=== PATIENT | male | born 1970 | race Hispanic/Latino ===

== ENCOUNTER 2024-07-13 17:45 | Inpatient (IN) | payer BC ==
[~2024-07-13] VITALS: Ht 167.6 cm; Wt 143.3 kg
[2024-07-13 18:29] LABS: BASOPHILS 0.7 % (0-2); EOSINOPHILS 1.1 % (0-6); HEMATOCRIT 29.5 % (35.0-50.0); HEMOGLOBIN 10.1 g/dL (12.0-18.0); LYMPHOCYTES 18.9 % (24-44); MCH 32.2 (27-36); MCHC 34.4 g/dl (30-36); MCV 93.6 fl (81-99); MONOCYTES 13.5 % (0-12); NEUTROPHILS 65.8 % (39-80); PLATELET COUNT 244 K/uL (140-440); RBC 3.15 M/ul (4.3-5.7); RDW 15.2 (10.5-15.0)
[2024-07-13] MEDS ORDERED: SODIUM CHLORIDE 0.9% 1,000 ML IV PRN ×2 (18:30)
[2024-07-13 18:36] LABS: ALBUMIN 2.9 g/dL (3.4-5.0); ALBUMIN/GLOBULIN RATIO 0.71 (1.1-2.4); ANION GAP 17.9 (7-21); BILIRUBIN, TOTAL 0.7 ng/dL (0.2-1.0); BUN/CREATININE RATIO 8.26 (6.0-28.6); CALCIUM 8.6 mg/dL (8.5-10.1); CREATININE, SERUM 2.42 mg/dL (0.70-1.30); POTASSIUM 3.9 mmol/L (3.5-5.1)
[2024-07-13] MEDS ORDERED: CEFEPIME HCL/D5W 2 GM/100 ML PIGGYBACK IV ONE (18:45)
--- OUTSIDE RECORDS SUMMARY | 2024-07-13 19:26 | XMS ---
PreManage Notification: ALYSON TOMLINSON Security Manager Company Events No recent Security Events currently on file CRITERIA MET - 6 ED Visits in 6 Months - [facility] - 2 Visits in 30 Days - [facility] - 3 Facilities in 90 Days CARE PROVIDERS Narayan Ramirez DO [facility] Current PHONE: Unknown JAMES DE LEÓN [facility] Current PHONE: Unknown KRISSY LORD [facility] Current PHONE: Unknown Bakari has no Care Guidelines for this patient. E.D. VISIT COUNT (12 MO.) [address] [place] [address] [facility] NOTE: Visits indicate total known visits. ED/UCC VISIT TRACKING (12 MO.) 07/13/2024 17:45 [facility] TYPE: Emergency COMPLAINT: - RECTAL ISSUE 07/11/2024 18:31 [facility] TYPE: Emergency DIAGNOSES: - Morbid (severe) obesity due to excess calories - Other specified diseases of anus and rectum - Perianal venous thrombosis - Unspecified atrial fibrillation - Fatigue - Headache (Adult - New Onset Or New Symptoms) - Nausea - Rectal Pain - rectal pain weakness nausea 07/11/2024 01:41 [facility] TYPE: Emergency DIAGNOSES: - Unspecified hemorrhoids - CYST 07/08/2024 10:04 [facility] TYPE: Emergency COMPLAINT: - VOMITING BLOOD DIAGNOSES: - VOMITING BLOOD 06/20/2024 13:41 [facility] TYPE: Emergency DIAGNOSES: - Effusion, left elbow - SENT BY DOC 04/29/2024 19:42 [facility] TYPE: Emergency DIAGNOSES: - Encounter for change or removal of nonsurgical wound dressing - Encounter for other specified aftercare - WOUND CHECK 04/28/2024 19:18 [facility] [place] TYPE: Emergency DIAGNOSES: - Cellulitis of right lower limb - Cutaneous abscess of right lower limb - Foot Pain 04/22/2024 10:15 [facility] [place] TYPE: Emergency DIAGNOSES: - Cellulitis of right lower limb - Other injury of unspecified body region, initial encounter - leg pain 11/05/2023 10:01 [facility] TYPE: Emergency DIAGNOSES: - Cellulitis of left upper limb - Strain of muscle, fascia and tendon of abdomen, initial encounter - Unspecified internal derangement of left knee - LEFT HAND SWELLING LEFT KNEE PAIN AND RIGHT GROIN AREA PAIN INPATIENT VISIT TRACKING (12 MO.) 07/08/2024 10:04 [facility] TYPE: Medical Surgical DIAGNOSES: - Contusion of left upper arm, initial encounter - Gastrointestinal hemorrhage, unspecified - Unspecified atrial fibrillation - VOMITING BLOOD [email or web address]
[2024-07-13] MEDS ORDERED: LIDOCAINE HCL100 ML MT (19:37)
[2024-07-13] MEDS ORDERED: METOCLOPRAMIDE10 MG PO (19:37)
[2024-07-13] MEDS ORDERED: DILTIAZEM 24HR180 M1 PO (19:37)
[2024-07-13] MEDS ORDERED: ONDANSETRON ODT4 MG PO (19:37)
[2024-07-13] MEDS ORDERED: PANTOPRAZOLE SO40 MG PO (19:37)
[2024-07-13] MEDS ORDERED: DICLOFENAC SODI50 GM TP (19:37)
[2024-07-13] MEDS ORDERED: TORSEMIDE10 MG PO (19:37)
[2024-07-13] MEDS ORDERED: XARELTO20 MG PO (19:38)
[2024-07-13] MEDS ORDERED: OZEMPIC0.25 MG/02 SQ (19:39)
[2024-07-13] MEDS ORDERED: FREESTYLE LITE1 EAC1 MISC (19:39)
[2024-07-13] MEDS ORDERED: VAZALORE81 MG PO (19:39)
[2024-07-13] MEDS ORDERED: FREESTYLE LANC1 EACH MISC (19:39)
[2024-07-13] MEDS ORDERED: LISINOPRIL40 MG PO (19:39)
[2024-07-13] MEDS ORDERED: LIDOCAINE 2% VISCOUS 6 ML SYR TOP ONE (20:00)
[2024-07-13 20:28] LABS: BILIRUBIN, URINE NEGATIVE (negative); BLOOD/HGB, URINE NEGATIVE (Negative); KETONE, URINE TRACE (Negative); LEUK ESTERASE, URINE NEGATIVE (negative); NITRITE, URINE NEGATIVE (negative); PH, URINE 5.5 (5-7)
[2024-07-13] MEDS ORDERED: PANTOPRAZOLE SODIUM 40 MG/10 ML VIAL IV SCH (20:43)
[2024-07-13] MEDS ORDERED: ondansetron HCL 4 MG/2 ML VIAL IV PRN (20:45)
[2024-07-13] MEDS ORDERED: ACETAMINOPHEN 325 MG TAB PO PRN (20:45)
[2024-07-13] MEDS ORDERED: DAPTOmycin 500 MG/10 ML VIAL IV SCH (21:00)
[2024-07-13 21:35] VITALS: BP 94/81
[2024-07-13] MEDS ORDERED: LACTATED RINGER'S 1,000 ML IV ONE (21:45)
[2024-07-13 22:00] VITALS: BP 91/77
[2024-07-13] MEDS ORDERED: DEXTROSE 5% 1,000 ML IV PRN (22:00)
[2024-07-13] MEDS ORDERED: GLUCAGON,HUMAN RECOMBINANT 1 MG/ML VIAL SUB-Q PRN (22:00)
[2024-07-13] MEDS ORDERED: DEXTROSE 50% 50 ML SYR IV PRN ×2 (22:00)
[2024-07-13] MEDS ORDERED: IBLOOD GLUCOSE TEST STRIP 1 EA TEST XX PRN (22:00)
[2024-07-13 22:30] VITALS: BP 119/81
[2024-07-13] MEDS ORDERED: HYDROmorphone HCL 2 MG TAB PO PRN (22:30)
[2024-07-13] MEDS ORDERED: PHE/SHARK LIVER OIL/COCOA BUT 1 EA SUPP PR PRN (22:30)
[2024-07-13 23:00] VITALS: BP 129/101
[2024-07-13 23:30] VITALS: BP 131/74
--- NOTE | 2024-07-13 23:49 | NUR ---
PATIENT ARRIVED TO UNIT AT 2115 AFTER REPORT RECEIVED FROM LONG STARKS. TRANSPORTED VIA GURNEY TO ROOM 129. PATIENT ASSISTED TO SCOOT OVER TO BED. RENEWABLE ENERGY ENGINEER MAGGI ([id number]) USED FOR ADMISSION AND ASSESSMENT. PATIENT ORIENTED TO ROOM,NURSING STAFF, CALL LIGHT FUNCTIONS AND SAFETY EDUCATION PROVIDED. PATIENT VERBALIZED UNDERSTANDING. ASSESSMENT CHARTED. PATIENTS FAMILY HAD MARKED AREA OF REDNESS ON HIS [employer] SALES CONSULTANT. PT'S REPORTS THE AREA APPEARS IMPROVED BUT IT IS RED AND WARM TO TOUCH. 23:[address] MICHAELS FOR CPAP/RT EVAL AND TREAT. RT TO ROOM WITH CPAP. RENEWABLE ENERGY ENGINEER MIREYA ([id number]) USED FOR THIS RN'S INCENTIVE SPIROMETER EDUCATION AND RT INTERVENTIONS. PATIENT REFUSED CPAP DUE TO DISLIKE OF MASK. ENCOURAGED FAMILY TO BRING IN HOME CPAP. PATIENT PLACED ON 1L NC FOR O2 SAT 87-88%. PATIENT'S AND SON REMAIN AT BEDSIDE. COMFORT ITEMS PROVIDED FOR FAMILY. CALL LIGHT IN REACH.
[2024-07-14] VITALS (31 sets, daily range): BP systolic 74–147; BP diastolic 55–110
--- NOTE | 2024-07-14 00:46 | NUR ---
PATIENT WAKES EASILY TO RN IN ROOM. REPORTS PAIN HAS IMPROVED. DENIES NEEDS AT THIS TIME. REMAINS AFIB ON TELEMETRY. FAMILY AT BEDSIDE. CALL LIGHT IN REACH.
--- NOTE | 2024-07-14 01:03 | NUR ---
PATIENT REPORTS PAIN HAS IMPROVED AFTER MEDICATION BUT STILL C/O HEMORRHOID PAIN. PREPARATION H MEDICATION NOT AVAILABLE AT THIS TIME. ASSISTED WITH REPOSITIONING AND PILLOW SUPPORT UNDER BUTTOCK.
--- NOTE | 2024-07-14 01:44 | NUR ---
PATIENT NOTED TO DESAT TO 80%, PATIENT AGREES TO WEAR CPAP. RT IN ROOM TO PLACE CPAP WITH 8L O2 BLEED IN. O2 SAT IMPROVED TO 93-95%.
--- NOTE | 2024-07-14 01:57 | NUR ---
DR. MICHAELS UPDATED ON CPAP AND O2 DEMAND WELL TEMP. ORDER RECEIVED FOR AM CHEST XRY.
--- NOTE | 2024-07-14 02:22 | NUR ---
PATIENT RESTING IN BED WITH EYES CLOSED. APPEARS TO BE TOLERATING CPAP MASK. O2 SAT WITH CPAP/8L O2 BLEED IN 97%. REMAINS AFIB ON TELEMETRY WITH HR RANGING FROM 109 TO 120S. PTS REPORTED THAT ON RECENT ADMISSION, PATIENT WAS GIVEN IV MEDICATION FOR RATE CONTROL. RECORDS REQUESTED FROM DEQUAN MOORE AWAITING FAX OF RECORDS AT THIS TIME.
--- NOTE | 2024-07-14 02:53 | NUR ---
REASSESSMENT CHARTED. PATIENT REMAINS ON CPAP WITH 8L O2 SUPPLEMENT. BP TREND REVIEWED WITH DR. MICHAELS. ORDER RECEIVED FOR 1L LR BOLUS.
[2024-07-14] MEDS ORDERED: LACTATED RINGER'S 1,000 ML IV ONE ×2 (03:00→10:45)
--- NOTE | 2024-07-14 03:20 | NUR ---
IVF INFUSING PER ORDER. TYLENOL GIVEN PER EMAR. FAMILY REMAINS AT BEDSIDE. PATIENT CONTINUES TO TOLERATE CPAP MASK WITHOUT COMPLAINT.
--- NOTE | 2024-07-14 04:36 | NUR ---
PATIENT REMAINS AFIB ON TELEMETRY. RATE NOTED TO INCREASE FROM 120S TO 130S AND AT TIMES 140S. DR. MICHAELS NOTIFIED OF CURRENT VS AND HR. ORDER RECEIVED FOR ESMOLOL GTT.
[2024-07-14] MEDS ORDERED: ESMOLOL HCL 250 ML IV SCH (04:45)
--- NOTE | 2024-07-14 05:05 | NUR ---
ESMOLOL GTT STARTED. HR DECREASED TO 112-120. BP 87/64 (73). UNIT AIDE TECH IN ROOM TO DRAW AM LABS.
[2024-07-14 05:29] LABS: BASOPHILS 0.7 % (0-2); EOSINOPHILS 1.5 % (0-6); HEMATOCRIT 23.8 % (35.0-50.0); HEMOGLOBIN 8.1 g/dL (12.0-18.0); LYMPHOCYTES 16.1 % (24-44); MCH 31.8 (27-36); MCHC 33.9 g/dl (30-36); MCV 93.7 fl (81-99); NEUTROPHILS 66.7 % (39-80); PLATELET COUNT 202 K/uL (140-440); RBC 2.53 M/ul (4.3-5.7); RDW 15.2 (10.5-15.0)
--- NOTE | 2024-07-14 05:31 | NUR ---
ESMOLOL GTT STOPPED D/T DECREASED IN BP AND MAP. DR. MICHAELS NOTIFIED OF BP. SOME IMPROVEMENT IN HR NOTED, CURRENTLY SUSTAINING HIGH 1 TEENS TO 120S. ORDER RECEIVED TO GIVE 1L NS BOLUS. PRECISION LATHE OPERATOR IN ROOM ATTEMPTING SECOND IV.
[2024-07-14] MEDS ORDERED: SODIUM CHLORIDE 0.9% 1,000 ML IV ONE ×2 (05:45)
[2024-07-14 05:55] LABS: ALBUMIN 2.2 g/dL (3.4-5.0); ALBUMIN/GLOBULIN RATIO 0.69 (1.1-2.4); ANION GAP 17.7 (7-21); BILIRUBIN, TOTAL 0.5 ng/dL (0.2-1.0); BUN/CREATININE RATIO 8.98 (6.0-28.6); CALCIUM 7.6 mg/dL (8.5-10.1); CREATININE, SERUM 1.67 mg/dL (0.70-1.30); MAGNESIUM 1.7 mg/dL (1.8-2.4); POTASSIUM 3.7 mmol/L (3.5-5.1); PROTEIN, TOTAL 5.4 g/dL (6.4-8.2)
--- NOTE | 2024-07-14 06:23 | NUR ---
PATIENT REPOSITIONED AND LIFT SHEET PLACED. CHUX CHANGED FOR SMALL AMOUNT OF SEROSANGUINOUS DRAINAGE FROM HEMORRHOIDS. XRY IN ROOM FOR PCXR. NS IV BOLUS STARTED. COOL CLOTH PROVIDED AND SPOUSE AT BEDSIDE ASSISTING WITH COMFORT CARES. PATIENT AWAKE AND CPAP REMOVED. CONTINUES TO WORK ON INCENTIVE SPIROMETER AND ACHIEVE 2000ML. ORAL TEMP 98.6. PILLOW SUPPORT PROVIDED TO RELIEVE PRESSURE OFF BUTTOCK. CALL LIGHT IN REACH.
--- NOTE | 2024-07-14 06:50 | NUR ---
PATIENT RESTING IN BED WITH EYES CLOSED. RR 17, O2 SAT 87-88% ROOM AIR. O2 2LNC PLACED WITH IMPROVEMENT TO 97%.
--- NOTE | 2024-07-14 07:11 | NUR ---
NS BOLUS COMPLETE. PATIENT AWAKE AND INTERACTING WITH SON. O2 TITRATED TO OFF WITH SATS AT 95-96%.
[2024-07-14] MEDS ORDERED: CEFEPIME HCL/D5W 2 GM/100 ML PIGGYBACK IV SCH ×2 (07:13→09:00)
[2024-07-14] MEDS ORDERED: MAGNESIUM SULFATE 2 GM/50 ML BAG IV SCH (07:30)
[2024-07-14] MEDS ORDERED: IBLOOD GLUCOSE TEST STRIP 1 EA TEST XX SCH (08:00)
[2024-07-14] MEDS ORDERED: INSULIN LISPRO 100 UNIT/ML ML SUB-Q SCH (08:00)
--- NOTE | 2024-07-14 09:09 | NUR ---
AM ASSESSMENT COMPLETE. PATIENT BOOSTED IN BED USING CEILING LIFT AND LIFT SHEET TO SIT UP FOR BREAKFAST. PT ONLY ATE ABOUT 30% OF HIS BREAKFAST. PT'S S/O MAHENDRA AND HIS BROTHER IN LAW PRESENT AT THIS TIME. HIS SON MIKI HAS LEFT FOR NOW. IV MAG NOW INFUSING. 2ND IV SITE TO BE ESTABLISHED. NO MOTTLING NOTED THIS AM. PT HAS HAD ECHO AND U/S LOWER RIGHT LEG COMPLETE. HEART RATE REMAINS IN THE 110-140s, DEPENDING ON ACTIVITY. PT STATES HIS PAIN IS IN HIS HEAD, AND STATES HE DOESN'T CURRENTLY HAVE A HEADACHE BUT DID HAVE ONE EARLIER.
--- NOTE | 2024-07-14 10:28 | NUR ---
DR. MICHAELS IN ROOM TO SEE PATIENT AT THIS TIME. HEMORRHOIDS EVALUATED AND PRN MEDICATION GIVEN. PT C/O HEADACHE AGAIN AND DISCUSSED WITH PATIENT AND FAMILY POTENTIAL FOR LP BUT NOT TO BE ORDERED AT THIS TIME. DEQUAN MOORE CALLED TO SEE IF ECHO RESULTS WERE AVAILABLE BUT PER THEIR ASSISTANT DIRECTOR OF FINANCIAL AID, THE REPORT IS NOT READ BY MANAGEMENT PROFESSIONAL. PT REMAINS ON AFIB, 110-130s HEART RATE. PT NOW RESTING ON RIGHT SIDE ADN POSITIONED WITH PILLOWS. PRN TRAMADOL TO BE ORDERED.
[2024-07-14] MEDS ORDERED: TRAMADOL HCL 50 MG TAB PO PRN (10:45)
[2024-07-14] MEDS ORDERED: METOPROLOL TARTRATE 25 MG TAB PO SCH (10:45)
--- NOTE | 2024-07-14 11:24 | NUR ---
PATIENT RESTING AT THIS TIME WITH HOME CPAP ON, OXYGEN AT 1 L BLED IN. PT STILL DESATURATING WITH THIS, AND 02 TURNED UP TO 2L. PT'S S/O IS RESTING ON COUCH AND PT'S SISTER IS SITTING AT BEDSIDE HOLDING PATIENT'S HAND. IV BOLUS INFUSING. IV MAG COMPLETE. IV CEFEPIME INFUSING STILL.
[2024-07-14] MEDS ORDERED: PHARMACY RENAL DOSE ADJUSTMENT 1 DOSE MISC PO SCH (12:00)
--- NOTE | 2024-07-14 12:24 | NUR ---
PATIENT RESTING AT THIS TIME WITH HOME CPAP ON AND DOES NOT WANT TO EAT ANY LUNCH. MOTTLING REMAINS GONE, SKIN IS WARM AND DRY. LAST BP 125/75. PO METOPROLOL STARTED FOR HEART RATE CONTROL. 1 L LR BOLUS HAS FINISHED AND PT TOLERATED WELL. URINE OUTPUT IN CUBA REMAINS CLEAR YELLOW AND GOOD AMOUNT NOTED IN BAG. FAMILY REMAINS AT BEDSIDE AND VERY ATTENTIVE TO PATIENT. 2 L OXYGEN REMAINS BLED INTO CPAP. WILL CONTINUE TO MONITOR.
--- NOTE | 2024-07-14 14:12 | NUR ---
Checked in with patient and family at 14:05, as Asphalt Heater Tenderyumi Roberson had met with family the night before in the ER. Gave words of comfort and let know of availability.
[2024-07-14] MEDS ORDERED: ZINC OXIDE TOP SCH (15:11)
--- NOTE | 2024-07-14 15:58 | EKG ---
[facility] [address] [facility] [place] [address] Signed Atrial fibrillation Low voltage QRS Abnormal ECG No previous ECGs available Confirmed by Yanick Milian MD ([id number]) on 07/14/2024 3:57:40 PM Electronically Signed By: YANICK MILIAN MD 07/14/24 1558 PATIENT NAME: ALYSON TOMLINSON Electrocardiogram DATE OF : 66 PHYSICIAN: YANICK MILIAN MD REPORT #: [id number] REPORT IS CONFIDENTIAL AND NOT TO BE RELEASED WITHOUT AUTHORIZATION
--- NOTE | 2024-07-14 17:44 | NUR ---
PATIENT GIVEN BED BATH AND NEW GOWN GIVEN. PT THEN UP TO CHAIR TO CHANGE LINEN. PT WAS A 2 PERSON ASSIST BUT STEADY ON FEET ONCE UP, EXCEPT FOR HIS CHRONIC PAIN IN LEFT LEG/KNEE. PT'S HELPING WITH BATH WELL. PT UNCOMFORTABLE IN CHAIR BECAUSE OF HIS HEMORRHOIDS. HELPED BACK TO BED AND NOW RESTING. PT NOT WANTING ANY DINNER. CBG 96 AND NO INSULIN NEEDED. HR REMAINS IN 120-130s AND MOST RECENT BLOOD PRESSURE IS 107/67. PT ON ROOM AIR AT THIS TIME.
--- NOTE | 2024-07-14 19:58 | NUR ---
SHIFT REPORT RECEIVED FROM LONG HOOD. PATIENT RESTING IN BED WITH EYES CLOSED, CPAP ON WITH 2L O2. O2 SAT 96-97%. RESPIRATIONS EVEN AND UNLABORED. PATIENT'S SPOUSE AT BEDSIDE. REVIEWED POC WITH SPOUSE FOR THE EVENING. DENIES QUESTIONS OR CONCERNS. CALL LIGHT IN REACH.
--- NOTE | 2024-07-14 20:52 | NUR ---
ASSESSMENT CHARTED. PATIENT C/O HEADACHE. PRN TRAMADOL GIVEN PER EMAR. CBG WNL, NO HS SS INSULIN NEEDED. PATIENT'S REMAINS AT BEDSIDE AND KINDLY INVOLVED IN CARES. ECONOMIC HISTORIAN IN ROOM TO COMPLETE CUBA CARE.
--- NOTE | 2024-07-14 20:57 | NUR ---
THREAT MONITORING ANALYST DID CATH CARE ON PT.
[2024-07-14] MEDS ORDERED: DAPTOmycin 500 MG/10 ML VIAL IV SCH (21:00)
--- NOTE | 2024-07-14 21:48 | NUR ---
PATIENT WISHES TO USE CHROME PLATER HELPER. TELE CHROME PLATER HELPER [place], [place] [id number] USED TO EXPLAIN POLICY AND REVIEW CHROME PLATER HELPER SERVICES DOCUMENTATION FORM. EXPLAINED TO PATIENT AND THAT THERE ARE TIMES THAT WE WILL STILL USE TELE CHROME PLATER HELPER AND AT ANY POINT HE CAN REQUEST TELE CHROME PLATER HELPER. BOTH VERBALIZE UNDERSTANDING. PATIENT REPOSITIONED IN BED WITH LIFT SHEET AND LIFT. ASSISTED WITH PILLOW SUPPORT. PATIENT REPORTS SOME INPROVEMENT IN HEADACHE AFTER TRAMADOL. DENIES OTHER NEEDS OR CONCERNS AT THIS TIME. CALL LIGHT IN REACH.
[2024-07-14] MEDS ORDERED: SODIUM CHLORIDE 0.9% 1,000 ML IV SCH (22:15)
--- NOTE | 2024-07-14 22:38 | NUR ---
DR. BRADLEY ROUNDED ON UNIT. UPDATED ON PATIENT. HR REMAINS 120S TO 130S, AFIB. ORDER RECEIVED FOR IVF, NS AT 125ML/HR. IVF HUNG AND INFUSING. PATIENT'S MAHENDRA REMAINS AT BEDSIDE. PATIENT DENIES NEEDS OR CONCERNS AT THIS TIME. HE IS RESTING IN BED WITH HOME CPAP ON WITH 2L O2. CALL LIGHT IN REACH.
[2024-07-14] MEDS ORDERED: DILTIAZEM HCl/D5W 125 ML IV SCH (23:15)
--- NOTE | 2024-07-14 23:15 | NUR ---
DR. BRADLEY NOTIFIED OF HR IN THE HIGHER 130S TO 140S. ORDER RECEIVED FOR DILTIAZEM GTT FOR SUSTAINED HR 130S TO 140S.
[2024-07-15] VITALS (30 sets, daily range): BP systolic 94–144; BP diastolic 52–111
--- NOTE | 2024-07-15 00:05 | NUR ---
PATIENT CONTINUED TO SUSTAIN HR 130S TO 140S WITH THE OCCASSIONAL LOW 150S. DILTIAZEM GTT INITIATED PER ORDER. EDUCATION PROVIDED TO PATIENT AND SPOUSE. ASSESSMENT CHARTED. PATIENT REQUESTS TYLENOL FOR FEVER AND HEADACHE; GIVEN PER EMAR. DENIES OTHER NEEDS OR CONCERNS. CALL LIGHT IN REACH.
--- NOTE | 2024-07-15 00:48 | NUR ---
DILTIAZEM STARTED AT 2.5MG/HR PER ORDER AND TITRATED. CURRENTLY AT 10MG/HR WITH HR MOSTLY SUSTAINING IN 140S, OCCASIONAL INCREASE TO 150S. BP ON Q15MIN CYCLES.
--- NOTE | 2024-07-15 01:21 | NUR ---
PATIENT C/O FEELING HOT AND SWEATY. ORAL TEMP 99.2. CBG 104. COOL CLOTH, FAN AND ICE BAGS PROVIDED FOR COMFORT. PATIENT DENIES CHEST PAIN OR SOB. DILTIAZEM TITRATTION AT 15MG/HR. BP TOLERATING RATE AT THIS TIME.
--- NOTE | 2024-07-15 02:22 | NUR ---
PATIENT RESTING WITH EYES CLOSED. RESPIRATIONS EVEN AND UNLABORED. REMAINS IN AFIB WITH RATE 117-130, MOSTLY HIGH 1 TEENS TO 120S AT THIS TIME. DILTIAZEM GTT REMAINS AT 15MG/HR WITH MOST RECENT BP 94/66 (76).
--- NOTE | 2024-07-15 04:03 | NUR ---
PATIENT RESTING WITH EYES CLOSED. REMAINS ON CPAP WHEN RESTING. HR IMPROVING WITH RATE RANGING FROM HIGH 90S TO HIGH 1TEENS. DILTIAZEM GTT CONTINUES AT 15MG/HR WITH MOST RECENT BP 100/72 (82). RESTING AT BEDSIDE. CALL LIGHT IN REACH.
--- NOTE | 2024-07-15 05:10 | NUR ---
PATIENT WOKE EASILY FOR ASSESSMENT. DENIES PAIN AT THIS TIME. IVF AND DILTIAZEM INFUSING WITHOUT DIFFICULTY. MINERAL SURVEYING TECHNICIAN IN TO DRAW AM LABS. AT BEDSIDE. CALL LIGHT IN REACH.
[2024-07-15 05:22] LABS: BASOPHILS 0.6 % (0-2); EOSINOPHILS 2.5 % (0-6); HEMATOCRIT 25.1 % (35.0-50.0); HEMOGLOBIN 8.5 g/dL (12.0-18.0); LYMPHOCYTES 18.3 % (24-44); MCH 31.8 (27-36); MCV 93.5 fl (81-99); MONOCYTES 15.3 % (0-12); NEUTROPHILS 63.3 % (39-80); PLATELET COUNT 207 K/uL (140-440); RBC 2.68 M/ul (4.3-5.7); RDW 15.1 (10.5-15.0)
[2024-07-15 05:37] LABS: ALBUMIN/GLOBULIN RATIO 0.59 (1.1-2.4); ANION GAP 15.6 (7-21); BILIRUBIN, TOTAL 0.4 ng/dL (0.2-1.0); BUN/CREATININE RATIO 6.72 (6.0-28.6); CALCIUM 7.8 mg/dL (8.5-10.1); CREATININE, SERUM 1.19 mg/dL (0.70-1.30); MAGNESIUM 1.8 mg/dL (1.8-2.4); POTASSIUM 3.6 mmol/L (3.5-5.1); PROTEIN, TOTAL 5.4 g/dL (6.4-8.2)
[2024-07-15] MEDS ORDERED: SENNOSIDES/DOCUSATE 1 EA TAB PO SCH (09:00)
--- NOTE | 2024-07-15 09:04 | NUR ---
IN PATIENT'S ROOM FOR AM ASSESSMENT, BREAKFAST AND VITALS. CBG 96 AND NO INSULIN NEEDED. PT RESTING IN BED ON ROOM AIR AND APPEARS IN NO ACUTE DISTRESS. PT ON DILT GTT AT 15 MG/HR AND HR BETTER CONTROLLED, CURRENTLY 110s. BPs ARE TOLERATING DILT GTT. URINE REMAINS YELLOW AND GOOD AMOUNTS NOTED IN CUBA BAG. PT WANTING TO HAVE CUBA D/C AND MD OKAY WITH THIS. STOOL SOFTENERS TO BE STARTED THIS AM. NS CONTINUES AT 125 ML/HR. PHYS THERAPY TO SEE PATIENT TODAY.
--- NOTE | 2024-07-15 10:08 | NUR ---
PATIENT UP WITH PHYS THERAPY TO CHAIR. PT PREFERS TO USE CRUTCHES, WHICH IS WHAT HE USES AT HOME. PT ABLE TO TAKE A FEW STEPS AND INTO THE CHAIR. DILT GTT REMAISN AT 15 MG/HR. PT C/O FEELING NAUSEOUS AND PRN ZOFRAN GIVEN. PT ALSO HAS A 9/10 HEADACHE, PAIN IN HIS RECTUM FROM HEMORRHOIDS, AND PAIN IN HIS LEFT KNEE WHICH IS CHRONIC. WILL CONTINUE TO MONITOR.
--- NOTE | 2024-07-15 10:29 | NUR ---
DR. BRADLEY IN TO SEE PATIENT AND PLAN OF CARE BEING DISCUSSED. PT DISCUSSING HIS HEMORRHOIDS, AND HOW THEY SUDDENLY APPEARED LAST TUESDAY MORNING. PT REPORTS LAST TUESDAY, A WEEK AGO, WHEN HE WAS AT [facility] FOR HIS GI BLEEDING, THEY DID A RECTAL EXAM AND HE FELT IF SOMETHING "TORE" WHEN THAT HAPPENED. PT STATES TUESDAY MORNING WHEN HE AWOKE, THE HEMORRHOIDS HAD APPEARED. PT'S TELLS US THAT PATIENT HAS AN APPOINTMENT WITH A PHYSICIAN ON JULY 25 FOR HIS HEMORRHOIDS, AND A CARDIOLOGY APPOINTMENT ON AUGUST 06 IN [facility].
--- NOTE | 2024-07-15 12:01 | NUR ---
PATIENT HELPED BACK TO BED WITH THIS RN AND HIS SON. ONCE PATIENT IS STANDING, HE IS STEADY ON HIS FEET BUT DOES FAVOR THE LEFT KNEE MAKING IT HARD TO WALK. PT'S SON AND DAUGHTER ARE THE ONLY ONES IN ROOM AT THIS TIME AND ATTENDING TO HIM. PT WANTING TO REST AND HAS CONTINUED TO HAVE NAUSEA. WILL CONTINUE TO MONITOR.
[2024-07-15] MEDS ORDERED: dilTIAZem HCL 180 MG CAPCR PO SCH (12:51)
--- NOTE | 2024-07-15 13:18 | NUR ---
DR. BRDALEY BACK IN ROOM TO SEE PATIENT AND ASSESS HEMORRHOIDS. PREP-H PRN MEDICATION APPLIED. HEMORRHOIDS REMAIN LARGE, PROTRUDED, BUT NOT DARK AND ABOUT THE SAME COLOR THE SURROUNDING SKIN. DR. BRADLEY DISCUSSING CASE WITH DR. HAYWOOD REGARDING TREATMENT OF THESE. Enrique PA HAS A SCHEDULED APPOINTMENT WITH DR. AVALOS IN [place] TO HAVE THESE ASSESSED, AND A SCHEDULED COLONOSCOPY SCHEDULED 08/06 AT [facility]. HOME DOSE OF DILT TO BE STARTED.
[2024-07-15] MEDS ORDERED: DICLOFENAC 1% TOPICAL GEL TOP PRN (13:30)
[2024-07-15] MEDS ORDERED: PROCHLORPERAZINE EDISYLATE 10 MG/2 ML VIAL IV PRN (13:30)
--- NOTE | 2024-07-15 14:23 | NUR ---
medications reconciled
--- NOTE | 2024-07-15 17:30 | NUR ---
PATIENT UP TO BATHROOM WITH CRUTCHES AND THIS RN AND HIS TO ASSIST EALIER. PT THOUGHT HE NEEDED TO HAVE A BM BUT WAS UNABLE. PT DID VOID AN UNMEASURED AMOUNT. PT THEN BACK TO BED AND CLEAN UNDERWEAR PLACED WITH JANELLE PAD TO CATCH THE SMALL AMOUNT OF BLOOD DRAINAGE THAT IS COMING FROM HEMORRHOID AREA. PATIENT NOT WANTING TO EAT ANY DINNER STILL. PT DID HAVE SMALL AMOUNT OF EMESIS EARLIER TODAY, ABOUT 100 ML YELLOW BILE LIKE FLUID. PRN COMPAZINE WAS GIVEN. PT'S FAMILY REMAINS IN ROOM.
--- NOTE | 2024-07-15 19:45 | NUR ---
REPORT RECEIVED FROM ERWIN ALVES. PT RESTING IN BED WITH EYES CLOSED, HR 90'S-100'S. AT BEDSIDE.
--- NOTE | 2024-07-15 22:45 | NUR ---
PT UP TO BEDSIDE TO VOID 500 ML ASHWIN URINE, BACK TO BED.
[2024-07-16] VITALS (10 sets, daily range): BP systolic 97–128; BP diastolic 64–89
--- NOTE | 2024-07-16 00:30 | NUR ---
PT HAS BEEN RESTING WITH CPAP ON, HR REMAINS 90'S, AT BEDSIDE.
--- NOTE | 2024-07-16 04:30 | NUR ---
PT UP TO BATHROOM TO HAVE BOWEL MOVEMENT, DID HAVE SMALL BOWEL MOVEMENT, STATES IT WAS NOT PAINFUL. ALSO HAD UNCAUGHT URINE. HR UP TO 140'S WHEN UP, BACK DOWN ONCE HE IS BACK IN BED.
--- NOTE | 2024-07-16 04:45 | NUR ---
ULTRAM GIVEN FOR HEMORRHOID PAIN.
[2024-07-16 05:28] LABS: BASOPHILS 0.6 % (0-2); EOSINOPHILS 2.9 % (0-6); HEMATOCRIT 23.8 % (35.0-50.0); HEMOGLOBIN 8.1 g/dL (12.0-18.0); LYMPHOCYTES 16.7 % (24-44); MCH 31.4 (27-36); MCHC 33.9 g/dl (30-36); MCV 92.8 fl (81-99); MONOCYTES 16.1 % (0-12); NEUTROPHILS 63.7 % (39-80); PLATELET COUNT 231 K/uL (140-440); RBC 2.57 M/ul (4.3-5.7); RDW 15.1 (10.5-15.0)
[2024-07-16 05:56] LABS: ALBUMIN 1.9 g/dL (3.4-5.0); ALBUMIN/GLOBULIN RATIO 0.58 (1.1-2.4); ANION GAP 17.8 (7-21); BILIRUBIN, TOTAL 0.4 ng/dL (0.2-1.0); BUN/CREATININE RATIO 5.6 (6.0-28.6); CALCIUM 7.9 mg/dL (8.5-10.1); CREATININE, SERUM 1.07 mg/dL (0.70-1.30); MAGNESIUM 1.4 mg/dL (1.8-2.4); POTASSIUM 3.8 mmol/L (3.5-5.1); PROTEIN, TOTAL 5.2 g/dL (6.4-8.2)
[2024-07-16] MEDS ORDERED: MAGNESIUM SULFATE 2 GM/50 ML BAG IV SCH (08:30)
--- NOTE | 2024-07-16 08:55 | NUR ---
PATIENT UP TO BATHROOM TO VOID AND HAS A BM. SOME BRIGHT BLOOD NOTED IN TOILET AFTER BM, NO CLOTS, BUT LIKELY FROM THE HEMORRHOIDS. PT ALSO VOIDS UNMEASURED VOID INTO TOILET. PT REPORTS HEADACHE AND SOME NAUSEA. PT'S REMAINS IN ROOM AND ATTENTIVE TO PATIENT. PT REMAINS IN AFIB, RATE IS WELL CONTROLLED THORUGH EVEN WITH ACTIVITY. CURRENTLY 100-110s WHILE IN BED RESTING.
--- NOTE | 2024-07-16 11:53 | NUR ---
VISITED DURING SPIRITUAL CARE ROUNDS. PT APPEARED TO BE SLEEPING. DID NOT DISTURB. PROVIDED PRAYER.
--- NOTE | 2024-07-16 13:06 | NUR ---
UR CLINICAL/CONCURRENT REVIEW: [facility] INPT CRITERIA; DOES NOT MEET GL DAY 2, VARIANCE COMPLETED EMPLOYEE [facility] INPT 07/13/24 @ 2039 AWAITING NOTIFICATION FOR CLINICAL REVIEW DISCHARGE TO HOME WHEN STABLE 07/18/24
--- NOTE | 2024-07-16 14:50 | NUR ---
Spoke with pt, his daughter, and his SO. Pt lives in [place] in a one story home. He has 2 steps and denies issues getting into his home. He uses crutches, bath bench, and a CPAP. He drives. He denies needs and denies financial issues. Family will assist him as needed. Plan dc in 1-2 days.
--- NOTE | 2024-07-16 16:04 | NUR ---
DR. BRADLEY IN TO SEE PATIENT. PLAN OF CARE BEING DISCUSSED. PT TRYING TO EAT SOME SLICES OF APPLES BUT IS ALREADY GETTING NAUESOUS WITH THIS. PT'S DAUGHTER AND IN ROOM AT THIS TIME. IVF TO BE D/C.
--- NOTE | 2024-07-16 18:05 | NUR ---
BED BATH GIVEN TO PATIENT WITH PATIENT'S HELP. PT TOLERATED WELL. REMAINS IN AFIB, HR WELL CONTROLLED, CURRENTLY 90s. PT HAS VOIDED WELL TO URINAL.
--- NOTE | 2024-07-16 19:30 | NUR ---
REPORT RECEIVED FROM AIME ALVES. PT IN ROOM AWAKE WITH VISITORS IN THE ROOM AND .
--- NOTE | 2024-07-16 19:56 | NUR ---
IN TO CHECK ON PT, VISITORS ARE NOW GONE. IS AT BEDSIDE. PT REPORTS PAIN WITH HEMORRHOIDS IS 9/10, ALSO C/O NAUSEA. WILL MEDICATE PER EMAR.
--- NOTE | 2024-07-16 21:00 | NUR ---
PT REPORTS NAUSEA IS BETTER, STILL RATES HEMORRHOID PAIN /, STATES HE JUST WANTS TO TRY TO SLEEP NOW.
--- NOTE | 2024-07-16 22:30 | NUR ---
PT UP TO BATHROOM FOR BOWEL MOVEMENT AND VOID. HR WHEN UP WAS 140 TO 183, MOSTLY IN 140-150'S. PT ON TOILET APPROX 10 MINUTES, HR REMAINED THIS HIGH THE ENTIRE TIME. PT INITIALLY DENIED FEELING ANY SX, BUT ONCE HE WAS ASSISTED BACK TO BED HE WAS VISIBLY SHORT OF BREATH AND DID SAY HE WAS FEELING WEAK. RECOVERED AFTER APPROX 5 MIN. WILL UPDATE MD. PT WAS ABLE TO HAVE BOWEL MOVEMENT, FLUSHED TOILET, DID STATE THERE WAS SOME BLOOD IN IT, ASKED PT AND HIS TO NOT FLUSH NEXT TIME AND THEY AGREE.
--- NOTE | 2024-07-16 22:42 | NUR ---
CALL TO DR BRADLEY TO INFORM HIM OF PTS HR UP TO 140-180 WHEN UP TO BATHROOM. PLAN TO ORDER LOPRESSOR IV. AND PT UPDATED AND AGREE WITH THE PLAN.
[2024-07-16] MEDS ORDERED: METOPROLOL TARTRATE 5 MG/5 ML VIAL IV SCH (22:45)
--- NOTE | 2024-07-16 23:15 | NUR ---
5MG IV LOPRESSOR WAS GIVEN AND HR WENT FROM 120'S TO 90-100'S OVER ABOUT 5 MINUTES. BP REMAINED WNL. PT NOW WANTING TO REST AND TRY TO GET SOME SLEEP.
[2024-07-17] VITALS (14 sets, daily range): BP systolic 93–129; BP diastolic 64–94
--- NOTE | 2024-07-17 00:50 | NUR ---
ASSUMED CARE OF PATIENT AFTER REPORT RECEIVED FROM LONG FERNANDEZ. PATIENT WAKES EASILY FOR ASSESSMENT. DENIES NEEDS, SPOUSE AT BEDSIDE. CALL LIGHT IN REACH. A-FIB ON TELEMETRY.
--- NOTE | 2024-07-17 05:00 | NUR ---
BP TREND REVIEWED. SPB <100, 04:45 DOSE OF METOPROLOL HELD PER PARAMETER.
[2024-07-17 05:24] LABS: HEMOGLOBIN 8.4 g/dL (12.0-18.0)
[2024-07-17 05:27] LABS: BASOPHILS 0.6 % (0-2); EOSINOPHILS 2.9 % (0-6); HEMATOCRIT 24.9 % (35.0-50.0); MCH 31.3 (27-36); MCHC 33.6 g/dl (30-36); MCV 93.1 fl (81-99); MONOCYTES 17.2 % (0-12); NEUTROPHILS 58.3 % (39-80); PLATELET COUNT 286 K/uL (140-440); RBC 2.68 M/ul (4.3-5.7); RDW 15.2 (10.5-15.0)
[2024-07-17 05:41] LABS: ALBUMIN 1.9 g/dL (3.4-5.0); ALBUMIN/GLOBULIN RATIO 0.53 (1.1-2.4); ANION GAP 14.7 (7-21); BILIRUBIN, TOTAL 0.4 ng/dL (0.2-1.0); BUN/CREATININE RATIO 4.42 (6.0-28.6); CREATININE, SERUM 1.13 mg/dL (0.70-1.30); MAGNESIUM 1.6 mg/dL (1.8-2.4); POTASSIUM 3.7 mmol/L (3.5-5.1); PROTEIN, TOTAL 5.5 g/dL (6.4-8.2)
--- NOTE | 2024-07-17 06:17 | NUR ---
PATIENT WAKES TO RN IN ROOM. IMMEDIATELY BEGINS PULLING AT GOWN, LINES AND LINEN, THRASHES IN BED. ORIENTED TO SELF. MEDICATED WITH ATIVAN PER EMAR. TELEMETRY LEADS REPLACED. WARM BLANKET PROVIDED. CALL LIGHT IN REACH WITH BED EXIT ALARM ON.
--- NOTE | 2024-07-17 07:37 | NUR ---
REPORT FROM LONG DUGGAN ASSISTANT BUSINESS MANAGER. PATIENT UP TO BATHROOM WITH CRUTCHES TO HAVE BM. STAND BY ASSIST. ASSISTS IN JANELLE CARE. PATIENT BACK TO BED. IV ABX AND FLUIDS CONTINUED.
--- NOTE | 2024-07-17 08:13 | NUR ---
PATIENT REPORTING NAUSEA WHEN THINKING BAOUT EATING. MEDICATED FOR NAUSEA PRIOR TO BREAKFAST. PATIENT GIVEN ENSURE AND CLEAR LIQUIDS TRAY. PATIENT AGREEABLE WITH TRYING TO EAT WHATS ON THE TRAY.
[2024-07-17] MEDS ORDERED: MAGNESIUM CHLORIDE 64 MG TABCR PO ONE (08:15)
--- NOTE | 2024-07-17 09:04 | NUR ---
PATIENT ABLE TO TOLERATE ENSURE AND JELLO FOR BREAKFAST. REPORTS SOME DECREASE INNAUSEA. MORNING MEDS PASSED. SEE EMAR. AT BEDSIDE.
--- NOTE | 2024-07-17 10:27 | NUR ---
PATIENT REPORTS INCREASED NAUSEA. PATIENT MEDICATED WITH COMPAZINE. SEE EMAR
--- NOTE | 2024-07-17 10:49 | NUR ---
PATIENT REPORTS DECREASE IN NAUSEA. PHYSICAL THERAPY IN ROOM FOR ASSESSMENT. PATIENT UP TO CHAIR. USES CRUTCHES. 2 PA.
--- NOTE | 2024-07-17 11:20 | NUR ---
PATIENT RECLINED IN CHAIR. PATIENT RESTING IWTH EYES CLOSED. CPAP PLACED WITH 2 L BLEED IN.
--- NOTE | 2024-07-17 12:58 | NUR ---
patient wakes from nap and requests to get back in bed. patient stands using crutches with stand by assist. uses urinal at bedside. clean linens provided.
--- NOTE | 2024-07-17 13:24 | NUR ---
DR. BRADLEY IN ROOM. DISCUSSED PLAN OF CARE. STRAWBERRY ENSURE PROVIDED. ICE PACK AND SEPIDEH WRAP TO LEFT KNEE FOR COMFORT.
[2024-07-17 15:01] LABS: CREATINE KINASE 142 U/L (39-308)
--- NOTE | 2024-07-17 17:07 | NUR ---
DINNER TRAY BROUGHT IN ROOM. IN ROOM. PATIENT WAKES TO RN IN ROOM. STRAWBERRY ENSURE FROM LUNCH WAS TOLERABLE AND PATIENT DENIES NAUSEA AT THIS TIME. FRESH ENSURE PROVIDED WITH LIQUIDS TRAY.
--- NOTE | 2024-07-17 18:16 | NUR ---
RUBBING PATIENTS FEET. PATIENT TALKING TO FAMILY ON PHONE. ABX COMPLETE. SALINE LOCKED PATIENT DENIES NEEDS. VSS.
[2024-07-17] MEDS ORDERED: METOPROLOL TARTRATE 5 MG/5 ML VIAL IV ONE (18:30)
--- NOTE | 2024-07-17 18:41 | NUR ---
PATIENTS PULSE WHILE IN BED UP IN 115-120 RANGE WHILE AT REST. VERBAL ORDER FROM [facility] FOR IV LOPRESSOR. TYLENOL GIVEN FOR LOW GRADE FEVER.
[2024-07-17] MEDS ORDERED: METOPROLOL TARTRATE 25 MG TAB PO SCH (21:00)
[2024-07-18] VITALS (22 sets, daily range): BP systolic 96–136; BP diastolic 64–121
--- NOTE | 2024-07-18 00:11 | NUR ---
IN TO DO ASSESSMENT, UP TO GET PT AN ICE PACK FOR HIS RLE. PT DENIES NEEDS.
--- NOTE | 2024-07-18 00:35 | NUR ---
PT UP TO BATHROOM TO SIT ON TOILET, HR TO 130-140'S WHILE SITTING ON TOILET AND WALKING BACK TO BED. PT DOES C/O INCREASED LEFT KNEE PAIN AND TYLENOL PRN GIVEN PER EMAR.
--- NOTE | 2024-07-18 01:15 | NUR ---
ASSUMED CARE OF PATIENT FROM JIM ALVES, ROUNDING AT THIS TIME, PATIENT IS RESTING IN BED, SLEPPING WITH HOME CPAP MACHINE ON, PATIENTS IS AT BEDSIDE IN RECLINER.
[2024-07-18 05:24] LABS: HEMOGLOBIN 8.6 g/dL (12.0-18.0); MCH 31.1 (27-36)
[2024-07-18 05:27] LABS: BASOPHILS 0.7 % (0-2); HEMATOCRIT 25.6 % (35.0-50.0); LYMPHOCYTES 21.9 % (24-44); MCHC 33.6 g/dl (30-36); MCV 92.8 fl (81-99); MONOCYTES 16.3 % (0-12); NEUTROPHILS 58.1 % (39-80); PLATELET COUNT 323 K/uL (140-440); RBC 2.76 M/ul (4.3-5.7); RDW 15.4 (10.5-15.0)
[2024-07-18 05:34] LABS: ALBUMIN 1.9 g/dL (3.4-5.0); ALBUMIN/GLOBULIN RATIO 0.54 (1.1-2.4); ANION GAP 17.5 (7-21); BILIRUBIN, TOTAL 0.3 ng/dL (0.2-1.0); BUN/CREATININE RATIO 4.58 (6.0-28.6); CALCIUM 8.1 mg/dL (8.5-10.1); CREATININE, SERUM 1.09 mg/dL (0.70-1.30); MAGNESIUM 1.5 mg/dL (1.8-2.4); POTASSIUM 3.5 mmol/L (3.5-5.1); PROTEIN, TOTAL 5.4 g/dL (6.4-8.2)
--- NOTE | 2024-07-18 05:41 | NUR ---
PATIENT ALERT AND ORIENTED RESTIN GIN BED TALKING WITH AT BEDSIDE, ON RA 99% OXYGEN SATURATION, HEART RATE IS 115-125 WITH MOVING HIS ARMS AROUND. HE SAID HE IS HAVING A LITTLE PAIN BLE, UPPER GASTRIC, HE DOES NOT WANT THE TRAMADOL, HE SAID HE WILL WAIT FOR THE TYLENOL TO BE AVAILABLE WITHIN THE HOUR.
--- NOTE | 2024-07-18 06:30 | NUR ---
PATIENT UP TO BATHROOM, NOTED PATIENT HEART RATE HIGH 170/MIN, NOT SUSTAINED, HEART RATE WHILE PATIENT UP TO BATHROOM SUSTAINED GREATER THAN 40 BEATS PER MIN., CALLED DUE TO CONCERNS OF PATIENT HEART RATE AND LOW MAGNESIUM 1.5, NEW ORDERS FOR LOPRESSOR 5MG IV ONE TIME PRN TO USE IF ONCE PATIENT BACK TO BED B/P STABLE AND HEART RATE REMAIN HIGH.
[2024-07-18] MEDS ORDERED: MAGNESIUM SULFATE 2 GM/50 ML BAG IV SCH (06:45)
[2024-07-18] MEDS ORDERED: METOPROLOL TARTRATE 5 MG/5 ML VIAL IV PRN ×2 (06:45→23:00)
--- NOTE | 2024-07-18 07:03 | NUR ---
PATIENT BACK TO BED, ABX AND MAGNESIUM IVP INFUSING, HEART RATE NOW AT 115-120/MIN, B/P 109/69 MAP 82. PATIENT ONLY REPORTS HEMORRHOID PAIN CONCERN. PATIENT DID HAVE BM AND VOIDED IN TOILET. PATIENT USES CRUTCHES TO AMBULATE AND IS STEADY GAIT WITH ONE PERSON ASSIST. TYLENOL ADMINISTERED FOR PAIN HEMORRHOID PAIN 01/29.
--- NOTE | 2024-07-18 08:00 | NUR ---
SBAR REPORT RECEIVED FROM LONG SALOMON. ALL EVENTS OF THE EVENING WERE DISCUSSED AND PLAN OF CARE REVIEWED. ALYSON IS NOTED TO BE RESTING IN BED WITH EYES CLOSED. SPOUSE MAHENDRA AT BEDSIDE. MAGNESIUM REPLACEMENT BAG #1 FINISHED. BAG #2 SCANNED AND BEGUN. AFIB WITH RVR PERSISTS, RA, NORMOTENSIVE BP, AFEBRILE. AM ASSESSMENT COMPLETED
[2024-07-18] MEDS ORDERED: dilTIAZem HCL 240 MG CAPCR PO SCH (09:00)
--- NOTE | 2024-07-18 10:11 | NUR ---
NEURO- ALERT AND ORIENTED X4, MOVES ALL EXTREMITIES, STRENGTH 5/4, PAIN ENDORSE IN BILATERAL LOWER EXTREMITIES 2/10, INTERMITTENT PAIN IN LEFT LOWER ABDOMEN ENDORSED PER SPOUSE, PERRL, CRUTCHES WHILE AMBULATING TO BATHROOM CARDIAC- AFIB WITH RVR, DILTIAZEM DOSE INCREASED, AFEBRILE, DEPENDENT LOWER EXTREMITY EDEMA, BILATERAL PATELLA PAIN AND EDEMA 2+ RESP- BREATH SOUNDS CLEAR/DIM, RA, O2 MAINTAINED ABOVE 93% GI/- CLEAR LIQUID DIET, TOLERATING ENSURE THIS AM. NO N/V REPORTED, SENNA MEDS FOR BOWEL REGULATION, AMBULATES TO BATHROOM FOR ALL RESTROOM NEEDS INT- SEE ASSESSMENT PIV- LEFT AC, RIGHT FOREARM AM METOPROLOL HELD PER MD BRADLEY
--- NOTE | 2024-07-18 10:29 | NUR ---
WORKING WITH PT. WILL RETURN TO SEE PATIENT
--- NOTE | 2024-07-18 13:00 | NUR ---
[facility] CONTINUES TO HAVE MANY VISITORS INCLUDING FRIENDS, FAMILY, AND SPIRITUAL CARE. POSTERIOR HEADACHE ENDORSED 03/31. 650MG PRN ACETIMONOPHEN GIVEN. INDEPENDENT ROTATION IN BED. SAFETY CHECK OF ROOM PERFORMED. BED ALARM ON, BED IN LOWEST POSITION, BEDSIDE TABLE AND CALL LIGHT NEAR BED
--- NOTE | 2024-07-18 13:54 | NUR ---
H&P, PROG NOTES, PT AND OT NOTES FAXED TO PATIENT'S PCP OFFICE IN [place] TO HAVE OUTPATIENT PT REFERRAL SENT.
[2024-07-18] MEDS ORDERED: CEFEPIME HCL/D5W 1 GM/100 ML PIGGYBACK IV SCH (14:00)
--- NOTE | 2024-07-18 15:23 | NUR ---
1P ASSIST TO RESTROOM WITH CRUTCHES. ALYSON WAS ABLE TO VOID IN THE URINAL AND ALSO HAVE A BM IN THE COMMODE. BROWN, SEMI SOLID STOOL NOTED. HR AFIB WITH RVR UP TO 166 NOTED. AMBULATION IN ROOM. BACK IN BED WITH NO OTHER NEEDS NOTED AT THIS TIME
--- NOTE | 2024-07-18 18:48 | NUR ---
ALYSON IS NOTED TO BE IN ROOM WITH FAMILY. ADVANCED TO A FULL LIQUID DIET. AFIB WITH RVR WITH ACTIVITY UP TO 166. DILTIAZEM INCREASED. SBAR REPORT GIVEN TO LONG SALOMON, LONG WILSON, AND LONG SIMPSON
--- NOTE | 2024-07-18 19:49 | NUR ---
PATIENT RESTING IN BED RELAXED RR 22/MIN NO DISTRESS NOTED, PATIENTS IS AT BEDSIDE IN RECLINER, SHE REPORT "HE HAS HAD A GOOD DAY" SHE IS CONCERNED ABOUT ONGOING STEVEN PAIN. NO NEEDS VERBALIZED AT THIS TIME. CALL LIGHT IN REACH.
--- NOTE | 2024-07-18 22:11 | NUR ---
PATIENT NOTED TO HAVE INCREASE HEART RATE TO 170/MIN, NOT SUSTAINED, THIS RN INTO ROOM, PATIENT HAD JUST HAD SMALL EMESIS, HEART RATE NOW 125/MIN AND TRENDING DOWN. PATIENT ADMINISTERED ZOFRAN PRN, HE REPORTS HE HAS NO NAUSEA AT THIS TIME. ASKED PATIENT TO NOTIFY RN IF ANY FURTHER NAUSEA OCCURRES, PATINET AND SAID "OK". NO FURTHER REQUESTS AT THIS TIME.
--- NOTE | 2024-07-18 23:28 | NUR ---
PATIENT UPTO BATHROOM NOTED ON MONITOR PATIENT HEART RATE HIGH 180/MIN, NOT SUSTAINED, RECOVERED 10 130'S QUICKLY WITH REST AND CONTINUED TO TREND DOWN STEADILY TO 110-120/MIN ONCE AT REST. PATIENT HAD BM AND URINATED WELL.
[2024-07-19] VITALS (19 sets, daily range): BP systolic 93–118; BP diastolic 59–83
--- NOTE | 2024-07-19 01:38 | NUR ---
ROUNDING, ABX COMPLETE, PATIENT RESTING IN BED WITH HOME CPAP ON HIS EYES ARE OPEN, REPORTS NO NEEDS AT THIS TIME.
--- NOTE | 2024-07-19 02:24 | NUR ---
PATIENT REPORTS DIFFICULT TO SLEEP TONIGHT, HE FEELS HIS NOSE IS STUFFY, AND HE REPORTS HE FEELS TOO WARM. TEMP 98.2 F. NO OTHER CONCERNS AT THIS TIME, HE DECLINED A BEDSIDE FAN.
[2024-07-19 05:24] LABS: BASOPHILS 1.1 % (0-2); EOSINOPHILS 2.8 % (0-6); HEMATOCRIT 26.5 % (35.0-50.0); LYMPHOCYTES 20.9 % (24-44); MCH 31.5 (27-36); MCHC 34.1 g/dl (30-36); MCV 92.3 fl (81-99); NEUTROPHILS 58.2 % (39-80); PLATELET COUNT 389 K/uL (140-440); RBC 2.87 M/ul (4.3-5.7); RDW 15.4 (10.5-15.0)
[2024-07-19 05:44] LABS: ALBUMIN 1.8 g/dL (3.4-5.0); ALBUMIN/GLOBULIN RATIO 0.49 (1.1-2.4); ANION GAP 15.2 (7-21); BILIRUBIN, TOTAL 0.3 ng/dL (0.2-1.0); BUN/CREATININE RATIO 4.38 (6.0-28.6); CALCIUM 8.4 mg/dL (8.5-10.1); CREATININE, SERUM 1.14 mg/dL (0.70-1.30); MAGNESIUM 1.7 mg/dL (1.8-2.4); POTASSIUM 3.2 mmol/L (3.5-5.1); PROTEIN, TOTAL 5.5 g/dL (6.4-8.2)
--- NOTE | 2024-07-19 06:00 | NUR ---
PATIENT UP TO BATHROOM STANDING WAIT COMPLETE, NOTED HEART RATE ELEVATED TO 171/MIN AT HIGHEST WITH AMBULATING, NOT SUSTAINED AND RECOVERED TO 120'S/MIN AND TO 110'S ONCE BACK TO BED. HEART RATE AT THIS TIME 110/MIN.
--- NOTE | 2024-07-19 07:30 | NUR ---
Report received from Melonie ALVES. Patient resting in bed with CPAP on. Breakfast tray delivered. Pt has no needs identified at this time, will continue plan of care.
--- NOTE | 2024-07-19 08:32 | NUR ---
Scheduled medications administered. Patient resting in bed with home CPAP in place, wakes to take PO medications. Patients states patient was "having a hard night, with being flushed and feeling 'not quite right'". Patient A+O at this time and reports feeling better. VSS. IV ABX infusing. Patient tolerates sips of clear liquids at this time. Denies pain.
[2024-07-19] MEDS ORDERED: MAGNESIUM CHLORIDE 64 MG TABCR PO ONE (09:00)
[2024-07-19] MEDS ORDERED: POTASSIUM CHLORIDE 40 MEQ,LIDOCAINE HCL 1% 40 MG in DEXTROSE 5% 250 ML IV ONE (09:00)
[2024-07-19] MEDS ORDERED: PANTOPRAZOLE SODIUM 40 MG TABEC PO SCH (09:00)
--- NOTE | 2024-07-19 09:15 | NUR ---
Patient remains tachycardic after PO medication administration. BP 90s/60s. Pt drowsy. Temperature taken, oral 101.3. Dr Arriaga at bedside to round. CXR, labs and CT of LLE ordered. Fluid bolus ordered. Explained cares to patient and his girlfriend Imani and they state understanding and are agreeable to POC.
[2024-07-19] MEDS ORDERED: SODIUM CHLORIDE 0.9% 1,000 ML IV SCH (09:45)
--- NOTE | 2024-07-19 09:58 | NUR ---
IV NS bolus infusing. Lab in room to draw. IV K rider and IV ABX infusing, all IVs flush well and no extravasation noted.
--- NOTE | 2024-07-19 10:13 | NUR ---
CXR complete, patient resting in bed, BP WNL, HR 116.
--- NOTE | 2024-07-19 11:00 | NUR ---
Patient taken to CT with contrast of RLE.
--- NOTE | 2024-07-19 12:20 | NUR ---
Lunch tray taken to patient of full liquids, able to sip on ensure, patient son Aaron at bedside and all questions answered regarding patient status and plan of care, encouraged patient to void at this time and he refuses need
[2024-07-19] MEDS ORDERED: AZITHROMYCIN 500 MG in DEXTROSE 5% 250 ML IV SCH (12:29)
--- NOTE | 2024-07-19 13:03 | NUR ---
Patient swabbed for respiratory panel. Tolerates well. States having headache, but decreased after medications. Son updated on plan of care, states understanding and all questions answered.
--- NOTE | 2024-07-19 13:25 | NUR ---
IV ABX infusing, patient has no needs at this time, preparing patient for consult by general surgeon
[2024-07-19 13:39] LABS: INFLUENZA B NAA NEGATIVE (NEGATIVE); RESPIRATORY SYNCYTIAL VIR NAA NEGATIVE (NEGATIVE)
--- NOTE | 2024-07-19 14:00 | NUR ---
Patient ambulates to BR with crutches, 500ml void with UA sample sent, no BM at this time. Patient's significant other completes cares for patient by patient request for privacy. [place] with bath wipes complete, this RN changed linens and patient gown. Dr Zacarias to bedside for I&D of RLE abcess, see progress note. examined patient hemmorhoids at this time. IV ABX infusing per hospitalist order. new orders received for fluids, preop orders.
[2024-07-19 14:12] LABS: BILIRUBIN, URINE NEGATIVE (negative); BLOOD/HGB, URINE NEGATIVE (Negative); KETONE, URINE SMALL (Negative); LEUK ESTERASE, URINE NEGATIVE (negative); NITRITE, URINE NEGATIVE (negative); PH, URINE 5.5 (5-7)
--- NOTE | 2024-07-19 15:00 | NUR ---
IV ABX infusing. Patient educated extensively with patient significant other assistance, both state understanding and all questions answered regarding surgery/plan of care. This RN speaks to son Aaron and explains further, patient and family deny needs and state understanding.
[2024-07-19] MEDS ORDERED: LACTATED RINGER'S 1,000 ML IV SCH (15:15)
--- NOTE | 2024-07-19 15:30 | NUR ---
IV LR infusing per order, blood glucose checked per Dr August request via fingerstick and WNL at 126.
--- NOTE | 2024-07-19 15:30 | CONS ---
[facility] [address], [place] [address] Signed DATE OF CONSULTATION: REQUESTING PHYSICIAN: Dr. Arriaga. PROBLEM: Right leg site cellulitis, recent fever and CT scan showing a small fluid collection, right medial calf. HISTORY OF PRESENT ILLNESS: This 54-year-old man is accompanied by his . He has been hospitalized since 07/13/2024 with right lower extremity cellulitis and several other problems. He is not anticoagulated. He underwent pulmonary serology test today showing no evidence of COVID or other viral illness. He had spiked a fever to [address] scan of the right leg was then obtained which showed a small fluid collection less than 2 cm in size in the right medial calf. It is noted that he underwent incision and drainage in [place], [place] of this same area antecedent to his hospitalization for progressive cellulitis. He is said to have had 32 ounces of purulent material withdrawn according to his . I was called by Dr. Arriaga for consideration and drainage of this area as a possible source of his temperature elevation. PHYSICAL EXAMINATION: GENERAL: Quite morbidly obese man who is alert and oriented, not systemically toxic. VITAL SIGNS: Heart rate of 106, blood pressure 113/67. NECK: Trachea is midline. CHEST: Shows normal respiratory excursion. He has no tachypnea. ABDOMEN: Quite markedly obese. Examination was not undertaken. The patient is known to have hemorrhoids. I have not examined him for that issue. EXTREMITIES: His right lower extremity is examined closely, showing only mild erythema and apparently quite markedly improved compared to previously. The area of previous incision as performed on [place], [place] is noted. It is completely sealed over. Local palpation reveals an area of tenderness inferior to this site. Following incision and drainage of this area, anorectal examination was undertaken as he has had hemorrhoidal complaints since admission. Examination in the right lateral decubitus position shows prolapsed hemorrhoids, which are clearly thrombosed and acutely inflamed and somewhat hemorrhagic. ASSESSMENT: Drainage of the right calf area revealed no actual purulent drainage. Examination of the anal rectum however shows an acute anorectal problem that has probably progressed Electronically Signed By: DIMITRI HAYWOOD MD 07/19/24 1530 PATIENT NAME: ALYSON TOMLINSON CONSULTATION DATE OF : 66 REPORT #: [id number] PHYSICIAN: DIMITRI HAYWOOD MD PCP: OTHER PCP REPORT IS CONFIDENTIAL AND NOT TO BE RELEASED WITHOUT AUTHORIZATION [facility] [address] [place], [place] [address] Signed and is more likely the cause of his current problem than anything else. Hemorrhoidectomy is indicated unfortunately. I am not sure to what extent this was an issue at time of admission, but it clearly is a problem now on the more likely cause of his current issue of fever and so on. Operation would consist of hemorrhoidectomy operatively and review of his day schedule shows he last had some Ensure at approximately 9 a.m. I will review all this with Dr. Arriaga. Hemorrhoidectomy should be undertaken and his special risks given his significant morbid obesity would likely make spinal anesthetic most appropriate under the circumstances. Of note, he was previously on Xarelto and no longer is on Xarelto and has not been for several days. Dimitri Haywood MD JM/MODL /[id number] cc: Dr. Arriaga Copies: ~ Electronically Signed By: DIMITRI HAYWOOD MD 07/19/24 1530 PATIENT NAME: ALYSON TOMLINSON CONSULTATION DATE OF : 66 REPORT #: [id number] PHYSICIAN: DIMITRI HAYWOOD MD PCP: OTHER PCP REPORT IS CONFIDENTIAL AND NOT TO BE RELEASED WITHOUT AUTHORIZATION
--- NOTE | 2024-07-19 17:11 | NUR ---
Patient afebrile at this time, denies needs, IVF infusing WNL, patient has visitors and is in good spirits, states no pain
--- NOTE | 2024-07-19 18:00 | NUR ---
Consent signed for AM surgery. Patient verbalizes understanding as well as family in the room. Pt states no needs at this time.
--- NOTE | 2024-07-19 19:45 | NUR ---
PATIENT RESTING IN BED, EYES CLOSED. CPAP IN PLACE. DESAT TO 65% FOR EXTENDED PERIOD OF APNEA. DISCUSSED WITH RT. 2L BLEED IN ADDED TO CPAP. MD AWARE.
--- NOTE | 2024-07-19 20:45 | NUR ---
PATIENT RESTING IN BED. VS STABLE. HR ELEAVTED; 115-120'S. PO MEDS GIVEN PER ORDERS. PATIENT DENIED OTHER CONCERNS. PAIN IS TOLERABLE IN JOINTS AND RIGHT LEG. I&D DONE BY ; COVERED AT THIS TIME. PATIENT IV SITE WNL X2. PATIENT'S AT BEDSIDE, BOTH DENY FURTHER NEEDS. CALL LIGHT IN REACH.
--- NOTE | 2024-07-19 22:30 | NUR ---
PATIENT UP TO THE BEDSIDE TO VOID TO URNAL. PATIENT'S HR UP TO 160'S WITH ACTIVITY. PATIENT DENIED FEELING SOB OR DIZZY. PATIENT RETURNED TO BED, ASSISTED BY HIS . HR RETURNED TO 110-120'S.
[2024-07-20] VITALS (14 sets, daily range): BP systolic 91–128; BP diastolic 64–97
--- NOTE | 2024-07-20 03:39 | NUR ---
PATIENT PROVIDED PRN TYLENOL WITH SIP OF WATER FOR 7/10 UPPER BACK PAIN. PATIENT ASSISTED TO REPOSITION IN BED. MUSCLE RUB AND HOT/COLD THERAPY OFFERED. PATIENT DECLINED. VS STABLE. PATIENT DENIED CHEST PAIN OR SOB. AT BEDSIDE.
[2024-07-20 05:32] LABS: BASOPHILS 0.7 % (0-2); EOSINOPHILS 2.2 % (0-6); HEMATOCRIT 24.9 % (35.0-50.0); HEMOGLOBIN 8.6 g/dL (12.0-18.0); LYMPHOCYTES 19.1 % (24-44); MCH 31.8 (27-36); MCHC 34.7 g/dl (30-36); MCV 91.9 fl (81-99); MONOCYTES 15.5 % (0-12); NEUTROPHILS 62.5 % (39-80); PLATELET COUNT 423 K/uL (140-440); RBC 2.71 M/ul (4.3-5.7); RDW 15.3 (10.5-15.0)
[2024-07-20 05:43] LABS: ANION GAP 14.3 (7-21); BUN/CREATININE RATIO 4.23 (6.0-28.6); CALCIUM 8.2 mg/dL (8.5-10.1); CREATININE, SERUM 1.18 mg/dL (0.70-1.30); MAGNESIUM 1.4 mg/dL (1.8-2.4); POTASSIUM 3.3 mmol/L (3.5-5.1)
--- NOTE | 2024-07-20 06:30 | NUR ---
PATIENT WIPED DOWN PRE-OP AND NEW GOWN PROVIDED. PATIENT'S AT BEDSIDE. PATIENT VS STABLE. HR CONTINUES TO BE ELEVATED; 110-130 AT REST. PATIENT TOLERATING ROOM AIR WHILE AWAKE. 2L PER CPAP WHILE SLEEPING.
--- NOTE | 2024-07-20 07:15 | NUR ---
UPDATE PROVIDED TO ; ORDERS RECEIVED FOR ELECTROLYTE REPLACEMENT. DISCUSSED ELEVATED HR, PLAN IS TO EVALUATE WITH SURGICAL TEAM PRIOR TO SCHEDULED SURGERY.
--- NOTE | 2024-07-20 07:45 | NUR ---
IV MAGNESIUM ADMINISTERED PER ORDER PRIOR TO SURGERY. OR TEAM IN ROOM TO ASSESS PATIENT.
[2024-07-20] MEDS ORDERED: BUPIVACAINE 0.75% IN DEXTROSE 2 ML AMP ONE (07:48)
[2024-07-20] MEDS ORDERED: LIDOCAINE HCL 2% 5 ML SDV ONE (07:48)
[2024-07-20] MEDS ORDERED: MIDAZOLAM HCL 2 MG/2 ML VIAL ONE (07:48)
[2024-07-20] MEDS ORDERED: fentaNYL citrate 100 MCG/2 ML VIAL ONE (07:48)
[2024-07-20] MEDS ORDERED: DIGOXIN 500 MCG/2 ML AMP IV ONE ×2 (08:15)
--- NOTE | 2024-07-20 08:15 | NUR ---
SPINAL BLOCK COMPLETE BY PROMOTION MANAGER. PATIENT TOLERATED WELL. 500MCG DIGOXIN ADMINISTERED PER ORDER. PATIENT TAKEN TO OR FOR PROCEDURE.
[2024-07-20] MEDS ORDERED: ondansetron HCL 4 MG/2 ML VIAL ONE (08:16)
[2024-07-20] MEDS ORDERED: POTASSIUM CHLORIDE 40 MEQ in DEXTROSE 5% 250 ML IV ONE (09:00)
[2024-07-20] MEDS ORDERED: MAGNESIUM SULFATE 2 GM/50 ML BAG IV ONE (09:00)
--- NOTE | 2024-07-20 09:05 | NUR ---
PATIENT RETURNS FROM OR FOR RECOVERY IN THE UNIT. 0930 PATIENT STATES HAVING CHEST PAIN THAT IS CONSTANT, RADIATES THROUGH HIS BACK, AND 9/10, CAUSING SOB. EKG AND STAT TROP ORDERED. PO MEDICATIONS ADMINISTERED. IV ABX INFUSING.
--- NOTE | 2024-07-20 09:22 | OR ---
[facility] [address] [facility] [place], [place] [address] Signed DATE OF OPERATION: 07/19/2024 SURGEON: Dimitri Haywood MD PREOPERATIVE DIAGNOSES: 1. Right recent calf cellulitis. 2. Abscess right medial calf area less than 2 cm. POSTOPERATIVE DIAGNOSES: 1. Right recent calf cellulitis. 2. Abscess right medial calf area less than 2 cm. PROCEDURE: Incision and drainage of right medial calf. ANESTHESIA: 1% lidocaine with epinephrine. PROCEDURE IN DETAIL: In the bed in a frogleg position, the right medial calf was prepared with Betadine solution and draped sterilely. 1% lidocaine with epinephrine was injected locally. In the area inferior to previous drainage site, an incision was made with an 11 blade. A purulent collection was not forthcoming despite it. A relatively deep incision. On that basis, a 10 mL syringe with an 18-gauge needle was used to probe the surrounding areas still showing no aspiration or purulence. The wound was packed with plain gauze and tape was applied. He tolerated the procedure well. Blood loss was minimal. MD VINAYAK Feldman/MENDOZA /[id number] cc: Dr. Arriaga Electronically Signed By: DIMITRI HAYWOOD MD 07/20/24 0922 PATIENT NAME: ALSYON TOMLINSON OPERATIVE REPORT DATE OF : 66 REPORT #: [id number] PHYSICIAN: DIMITRI HAYWOOD MD PCP: OTHER PCP REPORT IS CONFIDENTIAL AND NOT TO BE RELEASED WITHOUT AUTHORIZATION [address] [address] Signed Copies: ~ Electronically Signed By: DIMITRI HAYWOOD MD 07/20/24 0922 PATIENT NAME: ALYSON TOMLINSON OPERATIVE REPORT DATE OF : 66 REPORT #: [id number] PHYSICIAN: DIMITRI HAYWOOD MD PCP: OTHER PCP REPORT IS CONFIDENTIAL AND NOT TO BE RELEASED WITHOUT AUTHORIZATION
--- NOTE | 2024-07-20 09:23 | NUR ---
07/20/24 0923 Sherri De La Fuente 0903-CARE TRANSFERED FROM TUBE DEPATCHER TO CCU NURSE. PT WAKES EASILY, DENIES PAIN OR NAUSEA, ASKING FOR WATER. VSS ON 6L VIA MASK, PT TITRATED TO 2L VIA NC, VS REMAIN STABLE, RR EVEN AND UNLABORED. PT ROLLED ONTO L SIDE, SURGICAL SITE ASSESED W/ CCU NURSE, DRESSING CDI.
[2024-07-20] MEDS ORDERED: ENOXAPARIN SODIUM 40 MG/0.4 ML SYR SUB-Q SCH (09:45)
[2024-07-20] MEDS ORDERED: KETOROLAC TROMETHAMINE 30 MG/ML VIAL IV PRN (09:45)
[2024-07-20] MEDS ORDERED: ACETAMINOPHEN 500 MG TAB PO PRN (09:45)
--- NOTE | 2024-07-20 10:00 | NUR ---
PT CONTINUES TO HAVE CHEST PAIN, GI COCKTAIL ADMINISTERED, PT REMAINS ON 2L NC FOR COMFORT. BP STABLE, HR INCREASING TO 145 MAX.
[2024-07-20] MEDS ORDERED: LIDOCAINE & ANTACID 35 ML BTL PO ONE (10:30)
[2024-07-20] MEDS ORDERED: ACETAMINOPHEN 500 MG TAB ONE (10:42)
--- NOTE | 2024-07-20 10:45 | NUR ---
IV TORADOL AND PO TYLENOL ADMINISTERED FOR 9/10 PAIN TO CHEST WELL RECTUM POST OP. TROPONINS WNL AND EKG WNL. MAALOX WITH LIDOCAINE ADMINISTERED. PT VSS. FAMILY IN ROOM, CONTINUOUS EDUCATION AND CONVERSATION REGARDING PATIENT STATUS COMPLETE AND FAMILY STATE ALL QUESTIONS ANSWERED.
--- NOTE | 2024-07-20 11:09 | OR ---
[facility] [facility] [address] [place], [place] [address] Signed DATE OF OPERATION: 07/20/2024 SURGEON: Dimitri Haywood MD PREOPERATIVE DIAGNOSES: 1. Extensive thrombosis and necrosis of prolapsed hemorrhoidal disease. 2. Morbid obesity with multiple medical problems including atrial fibrillation and recent right lower extremity cellulitis. POSTOPERATIVE DIAGNOSES: 1. Extensive thrombosis and necrosis of prolapsed hemorrhoidal disease. 2. Morbid obesity with multiple medical problems including atrial fibrillation and recent right lower extremity cellulitis. PROCEDURES: 1. Exam under anesthesia. 2. Extensive hemorrhoidectomy x3 (difficult). ANESTHESIA: Spinal, Jamel Vikas, [employer] and local 10 mL of 0.25% Marcaine with epinephrine. INDICATION: This 54-year-old man was admitted to the hospital on 07/13/[address] Milian, care assumed by Dr. Arriaga. He had right lower extremity cellulitis that was significant. He additionally had hemorrhoidal disease for which he was evaluated in [facility] and was recommended to have outpatient hemorrhoidectomy at some point. He presented to the emergency room at [facility] with right lower extremity cellulitis and other derangements including his atrial fibrillation for which he was chronically anticoagulated with Xarelto. He has had antibiotic therapy for his right lower extremity. Hemorrhoidal prolapse was noted, though not initially thought to be ischemic or thrombotic. I was consulted yesterday July 19, 2024 regarding a small fluid collection in the right lower extremity for incision and drainage. Concurrent examination of the anorectum showed severe prolapsed hemorrhoidal disease with thrombosis, edema and probably necrosis. I have recommended emergency excision of these hemorrhoidal complexes. The patient has been on variable intravenous drips for atrial fibrillation with rapid ventricular response. He understands as does his family the risk of bleeding, infection, need for other indicated procedures and so forth and wished to proceed. Electronically Signed By: DIMITRI HAYWOOD MD 07/20/24 1109 PATIENT NAME: ALYSON TOMLINSON OPERATIVE REPORT DATE OF : 66 REPORT #: [id number] PHYSICIAN: DIMITRI HAYWOOD MD PCP: OTHER PCP REPORT IS CONFIDENTIAL AND NOT TO BE RELEASED WITHOUT AUTHORIZATION [facility] [address] [place], [place] [address] Signed FINDINGS: Indeed significant advanced edematous hemorrhoidal plexi were noted which were thrombosed and necrosis seen but without sign of gangrene proper. Complete excision of hemorrhoids in the left lateral, right anterior and right posterior aspect were undertaken. The remaining anorectum appears healthy now. DESCRIPTION OF PROCEDURE: The patient was given a spinal anesthetic and placed in the prone leon-knife position. Given his significant obesity, additional sedation was deemed inadvisable. The buttocks were taped apart. Examination undertaken showing extensive disease with necrosis, thrombosis and profound edema. There is no surrounding cellulitis of the perineum. Preparation was undertaken with Betadine based solution after taping the buttocks apart and sterile draping. The patient had been on antibiotics already for his cellulitis, which would cover presumed pathogens from this process. Attention was turned towards the largest prolapsed hemorrhoidal complex, which is right anterior. Miller clamp was applied to the edematous tissue and a 2-0 chromic applied to the pedicle within the low rectum. Using electrocautery, the tissue was excised free with fair amount of bleeding as might be expected. These bleeding sites were cauterized and secured with hemostats as necessary. The pedicle was additionally secured with the chromic tie, chromic suture already applied. The mucosa was reapproximated after hemostasis was assured with running 2-0 chromic leaving an external portion to allow for drainage. Good hemostasis was noted. With similar technique, the right posterior and left lateral hemorrhoidal complexes were similarly excised. Irrigation was undertaken. There was no sign of ongoing bleeding. A 10 mL of 0.25% Marcaine with epinephrine was injected locally. A rolled Gelfoam was covered in bacitracin solution and inserted into the anorectum. A peripad was applied. He was transferred to regular structure and return to the Intensive Care Unit for further management. Blood loss was about 25 mL in aggregate. Sponge, needle, and instrument counts reported as correct x3. Dimitri Haywood MD /[facility] /[id number] Electronically Signed By: DIMITRI HAYWOOD MD 07/20/24 1109 PATIENT NAME: ALYSON TOMLINSON OPERATIVE REPORT DATE OF : 66 REPORT #: [id number] PHYSICIAN: DIMITRI HAYWOOD MD PCP: OTHER PCP REPORT IS CONFIDENTIAL AND NOT TO BE RELEASED WITHOUT AUTHORIZATION [address] [address] Signed cc: Dr. Bart Milian Copies: ~ Electronically Signed By: DIMITRI HAYWOOD MD 07/20/24 1109 PATIENT NAME: BUSHRAALYSON OPERATIVE REPORT DATE OF : 66 REPORT #: [id number] PHYSICIAN: DIMITRI HAYWOOD MD PCP: OTHER PCP REPORT IS CONFIDENTIAL AND NOT TO BE RELEASED WITHOUT AUTHORIZATION
--- NOTE | 2024-07-20 11:20 | NUR ---
RN LÁZARO IN ROOM TO ASSIST WITH PATIENT POSITIONING AND COMFORT. EDUCATION ABOUT S/SX TO BE AWARE OF POST OP. PT AND FAMILY UNDERSTAND. NO NEEDS AT THIS TIME
--- NOTE | 2024-07-20 11:59 | NUR ---
MD updated regarding patient HR and BP, temperature, extremity and scrotal edema. New medication orders received.
[2024-07-20] MEDS ORDERED: metroNIDAZOLE 250 MG TAB PO SCH (12:00)
[2024-07-20] MEDS ORDERED: FUROSEMIDE 100 MG/10 ML VIAL IV ONE (12:00)
--- NOTE | 2024-07-20 14:40 | NUR ---
Upon entering the room patient is found to be in bed with eyes closed respirations even and unlabored. is at bedside and there are 4-5 other visitors in the room at this time. I visited with his regarding his care upon discharge from the hospital. She states that when he is "well enough" to be discharged she plans to take him home and provide for his total care needs. She states that they have a "big family" and that there will be a lot of people there to help her. During this time Mr. Abreu does not open his eyes or respond to our conversation. Mr Abreu's is unwaivering regarding her desire to take her home and care for him when he is able to leave the hospital.
[2024-07-20] MEDS ORDERED: metroNIDAZOLE/SODIUM CHLORIDE 500 MG/100 ML PIGGYBACK IV SCH (15:00)
--- NOTE | 2024-07-20 15:28 | NUR ---
Patient resting in bed with eyes closed, even and unlabored respirations. Patients expresses gratitude for PRN pain medications given earlier in shift and states "he is finally able to relax". Patient VSS. Made plan to have patient get up and try to void by 1600 at the latest as patient has not voided this shift, 60mg IV lasix administered with regard to extremity and scrotal edema. No lung crackles noted.
--- NOTE | 2024-07-20 16:52 | NUR ---
This RN in room to encourage patient to attempt to void. Patient stands at bedside, unable to void at this time, walks into bathroom with and family assisting, patient has steady gait and states pain is improved.
--- NOTE | 2024-07-20 17:07 | NUR ---
Patient able to void 600ml. PVR bladder scan 215ml. Patient states no pain or needs at this time and ambulates back to bed with FWW. VSS.
--- NOTE | 2024-07-20 17:35 | NUR ---
Updated Dr Cristina on patient low urine output, continuing to monitor with I/Os after lasix administration.
--- NOTE | 2024-07-20 18:15 | NUR ---
PO ABX administered, patient drank half of an ensure, is now resting in bed with eyes closed and even and unlabored respirations.
--- NOTE | 2024-07-20 19:45 | NUR ---
SHIFT REPORT RECIEVED. PATIENT RESTING IN BED. EYES CLOSED. AT BEDSIDE. VS STABLE. HR 90-110; AFIB.
[2024-07-20 20:29] LABS: DIGOXIN 0.9 ng/dL (0.9-2.0)
--- NOTE | 2024-07-20 21:00 | NUR ---
PATIENT UP TO THE BATHROOM TO VOID. PATIENT TOLERATES WELL WITH FWW. HR INCREASED TO 140-150'S NON-SUSTAINED WITH ACTIVITY. PATIENT DID NOT HAVE BM, BUT SMALL AMOUNT OF BLOOD NOTED PER RECTUM. ASSISTED WITH CLEANING AREA WITH WARM WATER IN FLUSH. PATIENT RETURNED TO BED. REPORTS BEING TIRED BUT DENIED CHEST PAIN, DIZZINESS, OR SOB WITH ACTIVITY. HR IMPROVED TO 100'S WITH REST. PATIENT'S TESTICLUES ALSO NOTED TO BE ENLARGED WITH DEPENDENT EDEMA; TESTICULES ELEVATED. RLE I&D SITE DRESSING WAS CHANGED; NO NEW DRAINAGE NOTED. NON-ADHEARANT AND ALYVEN PLACED OVER AREA. SCHEDULED MEDS AND PRN TYLENOL GIVEN. PATIENT WEARING 2L NC FOR SLEEP BECAUSE HE REPORTS NASAL CONGESTION AND THE NC IS MORE COMFORTABLE. REMAINS AT BEDSIDE HELPING WITH PATIENT CARES. ALL QUESTIONS AND NEEDS ANSWERED. CALL LIGHT IN REACH.
--- NOTE | 2024-07-20 22:50 | NUR ---
patient up to the bathroom to void with assist from his and fww. patient tolerated well. voided and returned to bed. small amount of blood noted on bed chucks which was changed. HR 140-150's with activity, returned to 100-110 on return to bed.
[2024-07-21] VITALS (16 sets, daily range): BP systolic 95–143; BP diastolic 57–82
--- NOTE | 2024-07-21 00:30 | NUR ---
PATIENT RESTING IN BED WITH EYES CLOSED. WAKES EASILY WHEN RN IN ROOM. DENIES ANY NEEDS OR CONCERNS. AT BEDSIDE. VS STABLE. CALL LIGHT IN REACH.
[2024-07-21] MEDS ORDERED: MAGNESIUM HYDROXIDE/AL HYDROX 30 ML CUP PO PRN (05:00)
--- NOTE | 2024-07-21 05:14 | NUR ---
PATIENT REPORTS 10/10 PAIN IN EPIGASTRIC AREA AND THROAT. PATIENT REPORTS PAIN IS SIMILAR TO PREVIOUS EPISODE POST-OP YESTERDAY. PATIENT PROVIDED WITH PRN PAIN MEDS AND MAALOX. VS STABLE. PATIENT DENIED FEELING SOB. HR 100-110; ADEQUATE BP. AT BEDSIDE.
--- NOTE | 2024-07-21 05:30 | NUR ---
PATIENT SNORING SOFTLY, VS STABLE. AT BEDSIDE. ALLOWED TO REST.
[2024-07-21 05:37] LABS: ANION GAP 13.2 (7-21); BUN/CREATININE RATIO 4.76 (6.0-28.6); CALCIUM 8.2 mg/dL (8.5-10.1); CREATININE, SERUM 1.47 mg/dL (0.70-1.30); POTASSIUM 4.2 mmol/L (3.5-5.1)
[2024-07-21 05:48] LABS: BASOPHILS 0.7 % (0-2); EOSINOPHILS 2.6 % (0-6); HEMATOCRIT 25.2 % (35.0-50.0); HEMOGLOBIN 8.7 g/dL (12.0-18.0); MCH 31.3 (27-36); MCHC 34.5 g/dl (30-36); MCV 90.7 fl (81-99); NEUTROPHILS 72.7 % (39-80); PLATELET COUNT 359 K/uL (140-440); RBC 2.78 M/ul (4.3-5.7); RDW 15.5 (10.5-15.0)
--- NOTE | 2024-07-21 06:30 | NUR ---
PATIENT REPORTS IMPROVED PAIN AND IS RESTING COMFORTABLY. TOLERATING 2L NC WHILE SLEEPING OFF AND ON. VS STABLE. HR 100-120'S AT REST.
[2024-07-21] MEDS ORDERED: IBUPROFEN 600 MG TAB PO PRN (08:00)
--- NOTE | 2024-07-21 08:47 | NUR ---
REPORT RECEIVED FROM INVENTORY CONTROL ASSOCIATE RN. PATIENT WAKES TO RN IN ROOM. PATIENT'S REMAINS AT BEDSIDE. PATIENT TO CT PER ORDER AT 08:25. TOLERATED CT FAIR. HR INCREASED TO 140-160 WHILE IN WHEELCHAIR. BACK TO ROOM AND TO BED WITH RATE CURRENTLY IN THE 120S. PATIENT WISHES TO REST A MOMENT BEFORE BREAKFAST. CALL LIGHT IN REACH.
[2024-07-21] MEDS ORDERED: DIGOXIN 250 MCG TAB PO SCH (09:00)
--- NOTE | 2024-07-21 09:58 | NUR ---
NOTIFIED THAT IMAGING REPORT ON CHEST CT IS BACK, HE STATES HE WILL LOOK AT IT SHORTLY.
--- NOTE | 2024-07-21 10:01 | NUR ---
CT RESULTS BACK; DR. CORRAL NOTIFIED. DR. HAYWOOD ROUNDING.
[2024-07-21] MEDS ORDERED: HEParin SOD (PORCINE) 5,000 UNIT/ML SYR IV PRN ×3 (10:15)
[2024-07-21] MEDS ORDERED: HEPARIN SOD,PORK IN 0.45% NACL 500 ML IV SCH (10:15)
[2024-07-21] MEDS ORDERED: HEParin SOD (PORCINE) 5,000 UNIT/ML SYR IV ONE (10:15)
--- NOTE | 2024-07-21 10:19 | NUR ---
LAB IN ROOM TO DRAW BLOOD.
[2024-07-21 10:26] LABS: BASOPHILS 0.3 % (0-2); EOSINOPHILS 2.7 % (0-6); HEMATOCRIT 26.5 % (35.0-50.0); LYMPHOCYTES 11.9 % (24-44); MCH 31.3 (27-36); MCV 92.2 fl (81-99); MONOCYTES 13.7 % (0-12); NEUTROPHILS 71.4 % (39-80); PLATELET COUNT 483 K/uL (140-440); RBC 2.88 M/ul (4.3-5.7); RDW 15.6 (10.5-15.0)
[2024-07-21 10:36] LABS: PARTIAL THROMBOPLASTIN TIME 48.1 Sec (22.9-41.3)
[2024-07-21 10:37] LABS: INR 1.4 (0.80-1.30); PROTIME 16.4 Sec (11.2-14.2)
--- NOTE | 2024-07-21 11:03 | NUR ---
DR. CORRAL IN ROOM REVIEWING RESULTS OF CTA WITH PATIENT AND FAMILY.
--- NOTE | 2024-07-21 11:32 | NUR ---
HEPARIN GTT AND BOLUS INTIATED AND GIVEN PER FLOWSHEET WITH JIM Chaves RN SECOND WITNESS. EDUCATION ON MEDICATION AND PRECAUTIONS GIVEN TO PATIENT AND FAMILY. NEXT PTT DRAW ENTERED FOR 17:30. PATIENT RESTING IN BED AT THIS TIME WITH SON AND SISTER AT BEDSIDE. CALL LIGHT IN REACH.
--- NOTE | 2024-07-21 12:59 | NUR ---
PATIENT RESTING WITH FAMILY AT BEDSIDE. HEPARIN GTT INFUSING WITHOUT DIFFICULTY.
--- NOTE | 2024-07-21 13:10 | NUR ---
FAMILY REMAINS AT BEDSIDE. SON REPORTS PATIENT DID NOT CARE FOR ASPARAGUS OFFERED AT LUNCH AND HE VOMITED IT UP. DENIED NEED FOR ZOFRAN AT THIS TIME.
--- NOTE | 2024-07-21 13:58 | NUR ---
PATIENT OOBTBR TO VOID AND HAVE SMALL BOWEL MOVEMENT. NO BLOOD NOTED IN EITHER. HR CONTINUES TO INCREASE WITH ACTIVITY, 140-150S THEN DECREASES AT REST. VOIDED 200ML DARK YELLOW URINE. BLADDER SCANNED BUT DIFFICULT VIEW WITH BODY HABITUS. REVIEWED UO WITH . ORDER RECEIVED FOR ONE TIME STRAIGHT CATH.
--- NOTE | 2024-07-21 15:11 | NUR ---
PATIENT STRAIGHT CATHED FOR 100ML ASHWIN URINE. TOLERATED WELL. DR. CORRAL UPDATED ON OUTCOME OF STRAIGHT CATH. ORDER RECEIVED FOR BMP TIMED WITH NEXT PTT DRAW.
--- NOTE | 2024-07-21 15:46 | NUR ---
DISCUSSED MEAL OPTIONS WITH PATIENT AND SPOUSE. PATIENT HAS A POOR APPETITE. MENU GIVEN SO PATIENT MAY CHOOSE ITEMS THAT ARE APPEALING. PATIENT REQUESTS SALMON, RICE AND STRAWBERRY ENSURE FOR SUPPER. REQUEST CALLED TO KITCHEN. FAMILY REMAINS AT BEDSIDE. PATIENT RESTING AT THIS TIME.
--- NOTE | 2024-07-21 16:12 | NUR ---
ASSESSMENT CHARTED. PATIENT RESTING IN BED AND NOTED TO BE SNORING. EDUCATION PROVIDED ON WEARING CPAP WHEN SLEEPING. PATIENT DENIES PAIN OR NEEDS AT THIS TIME. AT BEDSIDE. CALL LIGHT IN REACH.
--- NOTE | 2024-07-21 17:02 | NUR ---
SUPPER PROVIDED. PATIENT CONTINUES TO HAVE DECREASED APPETITE FOR FOOD BUT DOES DRINK ENSURE. ENCOURAGED PATIENT TO EAT HE CAN TOLERATE. PT'S , BROTHER AND SISTER IN LAW AT BEDSIDE. CALL LIGHT IN REACH.
--- NOTE | 2024-07-21 17:26 | NUR ---
PATIENT WISHES FOR BREAK FROM CPAP WHILE RESTING, HOWEVER O2 SAT RANGES FROM 86-90%. O2 2L NC PLACED.
--- NOTE | 2024-07-21 17:39 | NUR ---
LAB IN TO DRAW PTT AND BMP. BREAKFAST ORDER TAKEN AND CALLED TO KITCHEN. DENIES NEEDS AT THIS TIME.
[2024-07-21 17:52] LABS: ANION GAP 14.2 (7-21); BUN/CREATININE RATIO 6.75 (6.0-28.6); CREATININE, SERUM 1.48 mg/dL (0.70-1.30); POTASSIUM 4.2 mmol/L (3.5-5.1)
--- NOTE | 2024-07-21 18:08 | NUR ---
PTT RESULTED AND HEPARIN GTT TITRATED PER FLOW SHEET. DR. CORRAL UPDATED ON RESULTS OF BMP. ORDER RECEIVED FOR ALBUMIN.
[2024-07-21] MEDS ORDERED: ALBUMIN HUMAN 25% 100 ML BTL IV ONE (18:15)
--- NOTE | 2024-07-21 19:30 | NUR ---
SHIFT REPORT RECEIVED. PATIENT UP TO THE BATHROOM WITH ASSIST FROM HIS AND CRUTCHES. PATIENT DENIED FEELING SOB OR DIZZY. HR 150-160'S DURING ACTIVITY. PATIENT VOIDED SMALL AMOUNT AND RETURNED TO BED. PATIENT APPEARS SOB AND TIRED. HR RETURNED TO 120-130 RANGE UPON RESTING.
[2024-07-22] VITALS (12 sets, daily range): BP systolic 98–148; BP diastolic 58–86
--- NOTE | 2024-07-22 00:23 | NUR ---
PATIENT ORAL TEMP ELEVATED. PRN TYLENOL PROVIDED. HR AND BP STABLE. TOLERATING 2L NC. PATIENT DENIED PAIN OR ANY OTHER CONCERNS. PATIENT AT BEDSIDE AND ENCOURAGING PATIENT TO USE IS; WHICH HE DOES WELL.
--- NOTE | 2024-07-22 02:00 | NUR ---
PATIENT REPORTS LLQ PAIN AND BLOATING. ABD IS SLIGHTLY MORE FIRM THAN PRIOR ASSESSMENT. BOWEL SOUNDS ACTIVE. PATIENT REPORTS NAUSEA AND HAD SMALL AMOUNT OF EMESIS. PATIENT SITTING UP TO EDGE OF THE BED AND BURPING. PATIENT TELLS HIS HE THINKS ITS JUST GAS. PATIENT APPEARS UNCOMFORTABLE. PATIENT IS ALSO WARM TO TOUCH AND DIAPHORETIC. CONTINUES TO BE FEBRILE. HR 120-130'S; ADEQUATE BP. PATIENT TITRATED TO 4L NC DUE TO Sp02 88-90% ON 2L. REPORTED SYMPTOMS TO . CT ABD/PELVIS ORDERED.
--- NOTE | 2024-07-22 02:30 | NUR ---
PATIENT TAKEN TO CT AND WAS ABLE TO MOVE HIMSELF WITH ASSISTANCE TO THE TABLE AND BACK TO BED. PATIENT RETURNED TO ROOM AND WAS UP TO THE BATHROOM. PATIENT VOIDED AND HAD MEDIUM BM. NO BLOOD NOTED. RINSED SURGICAL AREA WITH WARM WATER. NO BLEEDING NOTED; SITE WNL. PATIENT ORAL TEMP HAS IMPROVED SLIGHTLY AND PATIENT APPEARS TO BE BREAKING HIS FEVER. NAUSEA HAS IMPROVED AND PAIN IN LLQ IS MILD WITH PALPATION. PATIENT RETUNRED TO BED AND WAS ASSISTED TO POSITION FOR COMOFRT. IV ABX STARTED. HEPARIN CONTINUES PER ORDER; SITES WNL X2.
--- NOTE | 2024-07-22 04:12 | NUR ---
PATIENT VS STABLE. PATIENT RESTING WITH EYES CLOSED. AT BEDSIDE. PATIENT APPEARS COMFORTABLE. WAKES EASILY TO VOICE. DENIED ANY NEEDS OR CONCERNS. DENIED NAUSEA AND REPORTS PAIN IS "NOT BAD" PER HIS . ALLOWED PATIENT TO REST.
--- NOTE | 2024-07-22 06:00 | NUR ---
LABS DRAWN PER ORDER. PATIENT RESTING IN BED. DENIED ANY NEEDS OR CONCERNS. VS STABLE. ORAL TEMP IMPROVED.
[2024-07-22 06:06] LABS: BASOPHILS 0.5 % (0-2); EOSINOPHILS 2.6 % (0-6); HEMATOCRIT 24.4 % (35.0-50.0); HEMOGLOBIN 8.2 g/dL (12.0-18.0); LYMPHOCYTES 15.7 % (24-44); MCH 30.8 (27-36); MCHC 33.7 g/dl (30-36); MCV 91.6 fl (81-99); MONOCYTES 11.7 % (0-12); NEUTROPHILS 69.5 % (39-80); PLATELET COUNT 508 K/uL (140-440); RBC 2.67 M/ul (4.3-5.7); RDW 15.7 (10.5-15.0)
[2024-07-22 06:15] LABS: ANION GAP 13.2 (7-21); BUN/CREATININE RATIO 6.71 (6.0-28.6); CREATININE, SERUM 1.49 mg/dL (0.70-1.30); MAGNESIUM 1.6 mg/dL (1.8-2.4); POTASSIUM 4.2 mmol/L (3.5-5.1)
--- NOTE | 2024-07-22 07:44 | NUR ---
PATIENT UP TO THE BATHROOM. TOLERATED WELL. HR 130-140'S WITH ACTIVITY. PATIENT VOIDED AND HAD LARGE BM. RINSED WITH WARM WATER. PATIENT RETUNRED TO BED. DENIED ANY NEEDS OR CONCERNS.
--- NOTE | 2024-07-22 08:05 | NUR ---
PATIENT RESTING IN BED AFTER USING AMBULATING TO BATHROOM, HE IS NOTED TO BE DROWSY/SNORING ALERT TO NAME. ASSESSMENT COMPLETE, AFEBRILE THIS AM. SPOUSE AT BEDSIDE.
[2024-07-22] MEDS ORDERED: MAGNESIUM SULFATE 2 GM/50 ML BAG IV ONE (08:15)
[2024-07-22] MEDS ORDERED: ALBUMIN HUMAN 25% 100 ML BTL IV ONE (09:30)
--- NOTE | 2024-07-22 09:46 | NUR ---
PATIENT MOVED FROM ROOM 129 TO 126 AT THIS TIME, THIS WILL ALLOW SHOWER ACCESS MORE EASILY. PATIENT UP IN RECLINER AT THIS TIME. PHYSICAL THERAPY TRANSFERED PATIENT FROM BED TO RECLINER. PLAN FOR TODAY IS UP TO RECLINER X3 FOR ONE HOUR AT A TIME. PATIENT REPORTS INCREASE PAIN AT HIS HEMORROID AREA WITH SITTING UP. DISCUSSED AND GACE EDUCATION TO NEED TO BE UP FOR IMPROVED OVERALL HEALTH, TO PREVENT FURTHER BLOOD CLOTS, INCREASE AIR MOVEMENT IN LUNGS AND PREVENT NEED TO DISCHARGE TO [facility] POST [facility]OSPITAL STAY, EDUCATIONS PROVDED BY PHYSICAL THERAPY AND THIS RN, SHOWER CHAIR IN BATHROOM TO PROVIDE BETTER WATER THERAPY AFTER TOILETING.
--- NOTE | 2024-07-22 10:39 | NUR ---
PATIENT BACK TO BED, TWO PERSON ASSIST TO GET HIS LEGS UP IN BED. HE IS NOTED TO BE SNORING AT THIS TIME. FAMILY AT BEDSIDE, ICE WATER PROVIDED TO FAMILY, NO OTHER NEEDS OR CONCERNS AT THIS TIME.
[2024-07-22] MEDS ORDERED: ACETAMINOPHEN 500 MG TAB PO PRN (11:30)
[2024-07-22] MEDS ORDERED: PSYLLIUM SEED 1 PKT PACKET PO SCH (11:30)
[2024-07-22] MEDS ORDERED: LACTATED RINGER'S 1,000 ML IV ONE (11:45)
[2024-07-22] MEDS ORDERED: SODIUM CHLORIDE 0.9% 1,000 ML IV ONE (12:15)
--- NOTE | 2024-07-22 12:15 | EKG ---
[facility] [address] [place] [address] Signed Atrial fibrillation with rapid ventricular response Low voltage QRS Abnormal ECG When compared with ECG of 13-JUL-2024 18:25, No significant change was found Confirmed by Nic Corral MD ([id number]) on 07/22/2024 12:15:24 PM Electronically Signed By: NIC CORRAL DO 07/22/24 1215 PATIENT NAME: ALYSON TOMLINSON Electrocardiogram DATE OF : 66 PHYSICIAN: NIC CORRAL DO REPORT #: [id number] REPORT IS CONFIDENTIAL AND NOT TO BE RELEASED WITHOUT AUTHORIZATION
--- NOTE | 2024-07-22 12:49 | NUR ---
PATIENT HAS BEEN UP IN RECLINER FOR HIS HOUR PER PLAN OF CARE TODAY WHILE EATING 50% OF HIS LUNCH. HE HAD ONLY ONE SIP OF METAMUCIL AND THEN VOMITED SMALL AMOUNT. PATIENT REPORTS ITS THE TEXTURE AND TASTE. HE ASKED IF HE CAN HAVE IT BY CAPSULE/PILL FORM.
[2024-07-22] MEDS ORDERED: FUROSEMIDE 20 MG/2 ML VIAL IV ONE (14:45)
[2024-07-22] MEDS ORDERED: LIDOCAINE 2% VISCOUS 6 ML SYR TOP ONE (14:45)
--- NOTE | 2024-07-22 14:45 | NUR ---
DISCUSSED PATIENT CASE WITH , INCLUDING WEIGHT GAIN, ABD DISTENTION AND TENSION. NEW ORDERS GIVEN TO PLACE CUBA, CHECK INTRA-ABDOMINAL PRESSURE, AND GIVEN LASIX 20MG IV. CUBA TO REMAIN IN PLACE FOR HOURLY MONITOR OF URINE OUT DUE TO FLUID OVERLOAD.
--- NOTE | 2024-07-22 15:27 | NUR ---
CUBA CATHETER PLACED, PER ORDERS, STERILE FIELD MAINTAINED THROUGHOUT PROCEDURE, JIM SINGH RN AT BEDSIDE WITNESS AND ASSIST NEEDED. PATIENT TOLERATED WELL, ALL FAMILY STEPPED OUT OF ROOM FOR PROCEDURE. INTRA-ABDOMINAL PRESSURE CHECKED, MEASURED 25MM. CALLED TO UPDATE. PATIENT HAD 250ML URINE RETURN WITH PLACEMENT OF CUBA.
--- NOTE | 2024-07-22 16:45 | NUR ---
PATIENT UP TO SHOWER WITH AND THIS RN. PATIENT TOLERATED WELL. HEPARIN INFUSION CONT. DURING SHOWER, IV SITES TAPED. PATIENT BACK TO SIT AT SIDE OF BED FOR DINNER. DINNER BROUGHT IN, SMELL MADE PATIENT WRETCH IMMEDIATELY. COMPAZINE PRN ADMINISTERED, PATIENT PROVIDED YOGURT FOR DINNER SUBSTITUTE.
[2024-07-22] MEDS ORDERED: MENTHOL/CETYLPYRD CL 1 LOZ LOZENGE MM PRN (17:45)
[2024-07-22] MEDS ORDERED: NYSTATIN 500,000 UNITS/5 ML CUP PO SCH ×2 (18:00→21:00)
--- NOTE | 2024-07-22 18:33 | NUR ---
REPORTED TO INTRA-ABDOMINAL PRESSURE OF 28MM FROM 25MM THREE HOURS AGO.
--- NOTE | 2024-07-22 18:47 | NUR ---
RECHECKED IAP AT THIS TIME WITH PATIENT LAYING FULLY FLAT. IAP IS 23MM.
--- NOTE | 2024-07-22 18:52 | NUR ---
CALLED IN REGARDS TO RETAKE OF IAP, HE SAID HE HAS TALKED TO TO CONTINUE TAKING IAP Q6 HOURS OVER NIGHT.
--- NOTE | 2024-07-22 20:43 | NUR ---
PATIENT PROVIDED WITH SCHEDULED MEDS, PATIENT TOLERATED WELL. DENIED ANY PAIN OR GI UPSET. TOLERATING HOME CPAP WITH 1L BLEED IN O2. HR 100-110; AFIB. ORAL TEMP WNL. ABD IS SOFT; MODERATELY DISTENDED. BOWEL SOUNDS ACTIVE. CUBA CARE DONE; OUTPUT QS. IV SITES WNL X2. 2+ PITTING EDEMA IN SPRING LOWER EXTREMITIES. DISCUSSED PLAN OF CARE WITH PATIENT AND HIS . ENCOURAGED THEM TO REST. CALL LIGHT IN REACH.
--- NOTE | 2024-07-22 23:38 | NUR ---
PATIENT'S CALLS TO REPORT PATIENT FEELS WARM TO TOUCH. ORAL TEMP ELEVATED; 102.7F. PRN TYLENOL PROVIDED. PATIENT DENIES PAIN, SOB OR GI UPSET. VS STABLE. HR SLIGHTLY ELEVATED AT 115 BMP. PRN TYLENOL PROVIDED.
--- NOTE | 2024-07-22 23:39 | NUR ---
ABDOMINAL PRESSURE PRESSURE ASSESSED PER POLICY; READING WAS 16 mmHg
[2024-07-23] VITALS (13 sets, daily range): BP systolic 92–121; BP diastolic 63–78
--- NOTE | 2024-07-23 00:50 | NUR ---
PATIENT UP TO THE BATHROOM. HAD SMALL BM. AREA CLEANED. PATIENT DIAPHORETIC. HR 140'S WITH ACTIVITY. PATIENT RETURNED TO BED. ORAL TEMP HAS IMPROVED. HR 105-110 AT REST. PATIENT DENIES ANY FURTHER NEEDS. AT BEDSIDE.
--- NOTE | 2024-07-23 02:25 | NUR ---
PATIENT PROVIDED ABX PER ORDER. PATIENT APPEARS RESTFUL IN BED. EYES CLOSED. LIGHT SNORE. VS STABLE. AT BEDSIDE. IV SITE WNL X2. CALL LIGHT IN REACH.
--- NOTE | 2024-07-23 04:00 | NUR ---
PATIENT RESTING IN BED. EYES CLOSED. VS STABLE. PATIENT TOLERATING CPAP WITH 02 BLEED IN. HR 95-105. ALLOWED PATIENT TO REST. CALL LIGHT IN REACH.
--- NOTE | 2024-07-23 05:15 | NUR ---
LAB IN FOR MORNING DRAW. PATIENT REPORTS DRY MOUTH AND SORENESS. PRN LOZENGE PROVIDED. OFFERED WARM LIQUIDS; PATIENT DECLINED. PATIENT DENIED OTHER CONCERNS AT THIS TIME. ORAL TEMP WNL. VS STABLE. AT BEDSIDE.
[2024-07-23 05:40] LABS: HEMOGLOBIN 8.3 g/dL (12.0-18.0); MCH 30.4 (27-36)
[2024-07-23 05:42] LABS: BASOPHILS 0.4 % (0-2); EOSINOPHILS 2.2 % (0-6); HEMATOCRIT 24.5 % (35.0-50.0); LYMPHOCYTES 13.2 % (24-44); MCHC 33.6 g/dl (30-36); MCV 90.3 fl (81-99); MONOCYTES 11.4 % (0-12); NEUTROPHILS 72.8 % (39-80); PLATELET COUNT 496 K/uL (140-440); RBC 2.72 M/ul (4.3-5.7); RDW 15.7 (10.5-15.0)
[2024-07-23 05:52] LABS: ANION GAP 15.2 (7-21); CALCIUM 8.1 mg/dL (8.5-10.1); CREATININE, SERUM 1.5 mg/dL (0.70-1.30); MAGNESIUM 1.8 mg/dL (1.8-2.4); POTASSIUM 4.2 mmol/L (3.5-5.1)
--- NOTE | 2024-07-23 06:29 | NUR ---
PATIENT RESTING IN BED WITH EYES CLOSED. DOES NOT ALERT WHILE RN IN ROOM. CUBA EMPTIED. IV SITES WNL X2. AT BEDSIDE. VS STABLE. ALLOWED PATIENT TO REST.
--- NOTE | 2024-07-23 06:47 | NUR ---
LABS REVIEWED. HEPARIN BOLUS AND TITRATED PER PROTOCOL. VERIFIED WITH SECOND RN, NADINE Prater
--- NOTE | 2024-07-23 08:00 | NUR ---
PATIENT UP TO BATHROOM, HEART RATE HIGH 165/MIN NOT SUSTAINED.
[2024-07-23] MEDS ORDERED: FUROSEMIDE 20 MG/2 ML VIAL IV ONE (08:15)
--- NOTE | 2024-07-23 08:50 | NUR ---
INTO CRITICAL ACCESS HOSPITAL ROOM WITH AM MED PASS, ASSESSMENT HAS ALREADY BEEN COMPLETE, TYLENOL AND ZOFRAN PRN INCLUDED WITH MED PASS PATIENT HAS 101.5 F TEMP AND NAUSEA WITHOUT EMESIS. HE HAS BEEN UP TO BATHROOM FOR BM AT SHIFT CHANGE, IS NOW SITTING AT SIDE OF BED FOR BREAKFAST.
[2024-07-23] MEDS ORDERED: PSYLLIUM HUSK 1 EA CAP PO SCH (09:00)
--- NOTE | 2024-07-23 09:34 | NUR ---
VISITED DURING SPIRITUAL CARE ROUNDS. PT SLEEPING. VISITED WITH FAMILY IN ROOM. NO IMMEDIATE NEEDS. WOOD HEEL FLAP RUBBER PROVIDED SUPPORTIVE PRESENCE, HOSPITALITY, PRAYER, FACILITATED INTERACTION WITH THERAPY ANIMAL.
--- NOTE | 2024-07-23 09:42 | NUR ---
IAP THIS AM IS 19MM.
[2024-07-23] MEDS ORDERED: METOPROLOL TARTRATE 25 MG TAB PO SCH (09:44)
[2024-07-23] MEDS ORDERED: Rivaroxaban 10 MG TAB PO SCH ×2 (10:04→17:00)
--- NOTE | 2024-07-23 10:58 | NUR ---
PATIENT RESTING IN BED ALERT AND ORIENTED, HIS DAUGHTER IS AT BEDSIDE VISITING. HE REPORTS NO NEEDS OR CONCERNS AT THIS TIME.
[2024-07-23] MEDS ORDERED: LIDOCAINE 2% (VISCOUS) HCL 15 ML UDC MT PRN (11:45)
--- NOTE | 2024-07-23 12:24 | NUR ---
PATIENT SITTING AT BEDSIDE, DID NOT TOLERATE SMELL, NAUSEA, ASKED FOR PUDDING INSTEAD, THIS IS PROVIDED.
--- NOTE | 2024-07-23 12:58 | NUR ---
PATIENT ASSISTED BACK TO BED AFTER SITTING UP FOR LUNCH. HE WAS ABLE TO TOLERATE, PUDDING, GRAPES AND POTATO. NO NEW CONCERNS AT THIS TIME
--- NOTE | 2024-07-23 14:12 | NUR ---
UR CONCURRENT REVIEW: MCG-PATIENT DOES NOT MEET GL DAY 2 FOR SEPSIS, VIARENCE COMPLETED. PATIENT DOES NOT MEET GL DAY 2 FOR PE, VIARANCE COMPLETED. MARYSE MALIK INCRISTOPHER 07/13/24 @ 2041 CLINICALS FAXED FOR EXTENDED STAY AUTH DISCHARGE TO HOME WHEN STABLE 07/25/24
--- NOTE | 2024-07-23 17:41 | NUR ---
PATIENT UP IN RECLINER AT THIS TIME FOR DINNER. HE IS ALERT AND ORIENTED, NO DISTRESS NOTED, NO SOB.
--- NOTE | 2024-07-23 18:34 | NUR ---
CALLED TO REPORT CONCERNS ABOUT PATIENTS RLE I&D SITE, DEMONSTRATES SLIGHTLY RED/BLUSH COLOR AROUND THE SITE, PATIENTS OUTLINED THE AREA NOTED TO BE DEEPER COLOR. ALSO NOTED TO BE SLIGTHLY WARMER THAN UPPER LEG OR LEFT LEG.
--- NOTE | 2024-07-23 19:25 | NUR ---
RECEIVED REPORT FROM DAY SHIFT RN. PATIENT IS RESTING IN BED WATCHING TV. NO NEEDS NOTED. CALL LIGHT IN REACH. AT BEDSIDE.
--- NOTE | 2024-07-23 20:35 | NUR ---
PATIENT ASSESMENT COMPLETED. PATIENTS REPORTS FEELING LIKE HE HAS A FEVER. PATIENTS TEMP 100.3. PATIENT AND PATIENTS REFUSE MOTRIN AT THIS TIME. UPDATED PATIENT THAT IT IS TO EARLY FOR TYLENOL. ROOM TEMP TURNED DOWN, ICE PACKS APPLIED TO FOREHEAD AND ARMPITS. FAN GIVEN TO PATIENT. IV ABX INFUSING PER ORDER. PATIENT DENIES ANY PAIN OR NAUSEA. NO FURTHER NEEDS NOTED. CALL LIGHT IN REACH.
[2024-07-23] MEDS ORDERED: DAPTOmycin 500 MG/10 ML VIAL IV SCH (21:00)
--- NOTE | 2024-07-23 21:30 | NUR ---
PATIENTS INTRA ABD PRESSURE ABD AND IS NOTED TO BE 16. PATIENTS PM MEDS GIVEN PER ORDER. PATIENTS IV FLUSHED AND SL PER ORER. PATIENT DENIES ANY PAIN, SOB, OR NAUSEA. PATIENT DENIES ANY FURTHER NEEDS. CALL LIGHT IN REACH.
--- NOTE | 2024-07-23 23:05 | NUR ---
PATIENT UP TO BR WITH A SBA W/FWW. PATIENT NOTED TO HAVE BM AND A SCANT AMOUNT OF BLOOD WHEN FLUSHED PATIENTS BOTTOM AFTER BM. PATIENT IS BACK IN BED RESTING. PATIENT DENIES ANY PAIN, NAUSEA, OR SOB. PATIENT IS ON 2L VIA NC. PAIENT DENIES ANY FURTHER NEEDS. CALL LIGHT IN REACH. IV ABX INFUFSING PER ORDER.
[2024-07-24] VITALS (14 sets, daily range): BP systolic 110–155; BP diastolic 66–95
--- NOTE | 2024-07-24 00:52 | NUR ---
PATIENTS CALL LIGHT ANSWERED. PATIENT REPORTED ACCIDENTALLY PRESSING CALL LIGHT. PATIENT DENIES ANY NEEDS. PATIENT DENIES ANY PAIN, NAUSEA, OR SOB. PATIENT IS ON 2L VIA NC. AT BEDSIDE AND DENIES ANY NEEDS. CALL LIGHT IN REACH.
--- NOTE | 2024-07-24 01:57 | NUR ---
PATIENTS SCHEDULED ABX INFUSING PER ORDER. PATIENT JEANNA ANY NAUSEA. PATIENT REPORTS DISCOMFORT IN THROAT, INTERVENTIONS OFFERED AND PATIENT DENIES. PATIENT JEANNA ANY FURTHER NEEDS. CALL LIGHT IN REACH. WATE BEDSIDE AND DENIES ANY NEEDS. CALL LIGHT IN REACH.
--- NOTE | 2024-07-24 02:40 | NUR ---
PT UP TO CHAIR WITH ASSISTANCE OF HIS . PT TOLERATES FAIR. ASSISTED BY HIS AND RN BACK TO BED. PT GETS SHORT OF BREATH AND HAS TO PAUSE AT TIMES BEFORE HE RESUMES. HR GETS UP IN TO THE 110s WITH ACTIVITY. PT BACK IN BED AT THIS TIME. CALL LIGHT IN REACH, IN ROOM.
--- NOTE | 2024-07-24 03:04 | NUR ---
PATIENT IS RESTING IN BED WITH EYE SCLOSED, RR 24. IV ABX INFUSING PER ORDER. ASLEEP IN RECLINER. NAD NOTED. CALL LIGHT IN REACH.
--- NOTE | 2024-07-24 04:09 | NUR ---
PATIENT IS RESTING IN BED WITH EYES CLOSED, RR 24. NAD NOTED. PATIENTS ASLEEP IN RECLINER. IV ABX INFUSING PER ORDER. 2L VIA NC IN PLACE.
[2024-07-24 05:45] LABS: BASOPHILS 0.6 % (0-2); EOSINOPHILS 2.4 % (0-6); HEMATOCRIT 26.3 % (35.0-50.0); HEMOGLOBIN 8.7 g/dL (12.0-18.0); LYMPHOCYTES 13.8 % (24-44); MCH 30.6 (27-36); MCHC 33.1 g/dl (30-36); MCV 92.3 fl (81-99); MONOCYTES 11.8 % (0-12); NEUTROPHILS 71.4 % (39-80); PLATELET COUNT 581 K/uL (140-440); RBC 2.85 M/ul (4.3-5.7)
--- NOTE | 2024-07-24 05:55 | NUR ---
PATIENT ASSISTED TO THE RECLINER. PATIENTS TEMP OBTAINED AND NOTED TO BE ELEVATED. PATIENT GIVEN PRN TYLENOL PER ORDER. PATIENTS CUBA EMPTED. PATIENTS IV ABX INFUSING PER ORDER. FRESH WATER PROVIDED. ICE PACKS PLACE UNDER PATIENTS ARMIPTS BY PATIENTS . PATIENT DENIES ANY PAIN, NAUSEA OR SOB. PATIENT REMAINS ON 2L NC. PATIENT ASSESMENT COMPLETED. PATIENT AND PATIENTS DENY ANY FURTHER NEEDS AT THIS TIME. CALL LIGHT IN REACH. WAFFLE OVERLAY PLACED ON PATIENTS BED.
[2024-07-24 05:58] LABS: ANION GAP 15.3 (7-21); BUN/CREATININE RATIO 5.46 (6.0-28.6); CREATININE, SERUM 1.83 mg/dL (0.70-1.30); MAGNESIUM 1.7 mg/dL (1.8-2.4); POTASSIUM 4.3 mmol/L (3.5-5.1)
[2024-07-24 06:06] LABS: CALCIUM 8.2 mg/dL (8.5-10.1)
--- NOTE | 2024-07-24 06:52 | NUR ---
PATIENT ASSISTED TO THE BR A 1PA W/FWW. PATIENT HAD BM. PATIENT IS BACK IN BED RESTING. PATIENTS TEMP OBTAINED AND RECORDED. PATIENTS TEMP HAS IMPROVED TO 100.1. PATIENT DENIES ANY PAIN, SOB, OR NAUSEA. PATIENT REMAINS ON 2L VIA NC. PATIENTS DW OBTAINED AND RECORDED. PATIENT GRICEL ANY FURTHER NEEDS. CALL LIGHT IN REACH. REMAINS AT BEDSIDE AND DENIES ANY NEEDS.
--- NOTE | 2024-07-24 07:49 | NUR ---
REPORT RECEIVED FROM NIGHT RN - PT RESTING IN BED ON BACK, RR EVEN AND UNLABORED. VS ON MONITOR STABLE. AT BEDSIDE IN CHAIR ASLEEP. CALL LIGHT IN REACH.
[2024-07-24] MEDS ORDERED: FUROSEMIDE 40 MG/4 ML VIAL IV ONE (08:00)
[2024-07-24] MEDS ORDERED: MAGNESIUM SULFATE 2 GM/50 ML BAG IV ONE (08:00)
--- NOTE | 2024-07-24 08:00 | NUR ---
ASSESSMENT COMPLETE. PT DENIES PAIN OR SOB, SP02 WNL ON ROOM AIR. HR 90'S - 100'S ON MONITOR WITH REST, AFIB. PT DENIES NAUSEA THIS AM BUT REQUESTS CORN FLAKES FOR BREAKFAST AND TO DELAY PO MEDS UNTIL AFTER EATING TO NOT UPSET STOMACH. MD IN ROOM TO ROUND, UPDATED ON FEVER ON NOC SHIFT. SWELLING AND REDNESS IMPROVED PER MD FROM PREVIOUS DAYS. DRESSING ON RIGHT CALF C/D/I. AT BEDSIDE PROVIDING MOST CARES.
[2024-07-24] MEDS ORDERED: METOPROLOL TARTRATE 50 MG TAB PO SCH (09:00)
--- NOTE | 2024-07-24 09:40 | NUR ---
RN IN ROOM ROUNDING ON PT - IV SITE IN LEFT ARM DIFFICULT TO FLUSH BUT WITHOUT PAIN. IV PUMP ALARMING OCCLUSION WITH ABX INFUSION, STOPPED AND WILL INFUSE AFTER MAG COMPLETE IN LEFT IV SITE. PT DENIES NAUSEA AFTER BREAKFAST.
--- NOTE | 2024-07-24 10:08 | NUR ---
VISITED DURING SPIRITUAL CARE ROUNDS. PT LAPSED IN AND OUT OF SLEEP, SUPPORTED BY LIFE PARTNER IN ROOM. REQUESTED CONSUMER LENDING MANAGER VISIT. MRI SPECIAL PROCEDURES TECHNOLOGIST PROVIDED SUPPORTIVE PRESENCE, HOSPITALITY, PRAYER, FACILITATED INTERACTION WITH THERAPY ANIMAL, COORDINATED CONSUMER LENDING MANAGER VISIT. PT AND PARTNER EXPRESSED GRATITUDE.
--- NOTE | 2024-07-24 11:00 | NUR ---
PT BACK TO CHAIR AFTER WORKING WITH PHYSICAL THERAPY. WAFFLE OVERLAY PLACED IN CHAIR TO HELP RECTUM PAIN ASSOCIATED WITH SITTING IN CHAIR. PT AGREES TO STAY UP FOR 2 HOURS AT DIRECTION OF THERAPIST.
--- NOTE | 2024-07-24 11:30 | NUR ---
SMALL SOFT BM REPORTED BY - NO BLOOD WHEN CLEANING RECTUM WITH SITZ BATH AFTER. HR ELEVATED WITH AMBULATION BUT QUICKLY RESOLVES, PT NOTED TO BE SOB WELL. 02 NOT NEEDED TO RECOVER.
--- NOTE | 2024-07-24 13:21 | NUR ---
UPDATED VIA TELEPHONE PT TEMP NOW 103.1, TYLENOL ADMINISTERED. RIGHT LOWER LEG IS WITHOUT INCREASED SWELLING OR REDNESS. VERBAL ORDER RECEIVED FOR HIV, QUANTIFERON GOLD AND REPEAT UA.
--- NOTE | 2024-07-24 13:38 | NUR ---
Patient is on a 60 gm cons carb diet. His appetite is poor to fair. He has been nauseous and having abdominal pain. Will add Ensure Max Protein to breakfast and dinner trays to provide a lower carb high protein supplement.
--- NOTE | 2024-07-24 14:29 | PATH ---
[facility] [address] [place], [place] [address] Signed SPECIMEN(S): A RIGHT ANTERIOR HEMORRHOIDAL COMPLEX SPECIMEN(S): B RIGHT POSTERIOR HEMORRHOIDAL COMPLEX SPECIMEN(S): C LEFT LATERAL HEMORRHOIDAL COMPLEX SPECIMEN SOURCE: A. RIGHT ANTERIOR HEMORRHOIDAL COMPLEX B. RIGHT POSTERIOR HEMORRHOIDAL COMPLEX C. LEFT LATERAL HEMORRHOIDAL COMPLEX CLINICAL HISTORY: Internal and external thrombosed hemorrhoids FINAL PATHOLOGIC DIAGNOSIS: A. Right anterior hemorrhoidal complex: - Polypoid anal-type mucosa with focal mucosal ulceration and dilated hemorrhoidal vasculature with stromal hemorrhage. B. Right posterior hemorrhoidal complex: - Polypoid anal-type mucosa with focal ulceration and subepithelial inflammation and hemorrhage with adjacent dilatated hemorrhoidal vasculature with organizing blood clot. C. Left lateral hemorrhoidal complex: - Polypoid anal-type mucosa with dilated hemorrhoidal vasculature with focal organizing blood clot and stromal hemorrhage. JVR:smn MICROSCOPIC EXAMINATION: Histologic sections of all submitted blocks are examined by light microscopy. These findings, together with the gross examination, support the pathologic diagnosis. GROSS DESCRIPTION: A. The specimen, labeled and designated "Brady, right anterior hemorrhoidal complex," is received in formalin and consists of skin and mucosal tissue fragment that measure 4.5 x 2.5 x 1.8 cm. Sectioning through the specimen reveal coagulated blood and congested tissue subcutaneous and submucosal. Is Manager sections are submitted in (A1). B. The specimen, labeled and designated "Brady, right posterior hemorrhoidal complex," is received in formalin and consists of 1 piece of skin and mucosal tissue that measure 1.8 x 0.8 x 0.8 cm. Sectioning through the specimen reveal dark red, congested submucosal and subcutaneous tissue. Is Manager sections are submitted in (B1). PATIENT NAME: ALYSON TOMLINSON PATHOLOGY DATE OF : 66 REPORT #: [id number] PHYSICIAN: KIARRA HOFFMAN PCP: OTHER PCP REPORT IS CONFIDENTIAL AND NOT TO BE RELEASED WITHOUT AUTHORIZATION [facility] [address] [place], [place] [address] Signed C. The specimen, labeled and designated "Brady, left lateral hemorrhoidal complex," is received in formalin and consists of irregular shaped skin and mucosal tissue that measure 4.2 x 2.5 x 1.8 cm. Sectioning through the specimen reveal coagulated blood and congested submucosal and subcutaneous tissue. Is Manager sections are submitted in (C1). JS (under the direct supervision of a pathologist) The Gross Description was prepared using a voice recognition system. The report was reviewed for accuracy; however, sound-alike word errors, addition and/or deletions may occur. If there is any question about this report, please contact Client Services. PERFORMING LABORATORY: Technical component was performed by [facility], [address] [place] [id number] (CLIA# [id number]). Professional interpretation was performed by [facility] - [facility], [address] [place] [id number] (CLIA#: [id number]). Diagnostician: Ramo Jhaveri MD Pathologist Electronically Signed 07/24/2024 Copies: ~ PATIENT NAME: ALYSON TOMLINSON PATHOLOGY DATE OF : 66 REPORT #: [id number] PHYSICIAN: KIARRA PATHOLOGY PCP: OTHER PCP REPORT IS CONFIDENTIAL AND NOT TO BE RELEASED WITHOUT AUTHORIZATION
--- NOTE | 2024-07-24 15:06 | NUR ---
INTRA ABDOMINAL PRESSURE 11MM-HG. PT RESTING IN BED WITH CPAP IN PLACE, DROWSY. TEMP DECREASED TO 99.3. CUBA CLAMPED TO COLLECT UA.
--- NOTE | 2024-07-24 15:30 | NUR ---
Attempted to speak with pt x 3. Initially he was walking with PT. The other two attempts he was sleeping. SO was on the phone. I will fu tomorrow. NOtified by PT, pt will need a walker. He was using crutches, but has changed his mind and would now like a walker.
[2024-07-24 16:38] LABS: BILIRUBIN, URINE NEGATIVE (negative); BLOOD/HGB, URINE SMALL (Negative); KETONE, URINE NEGATIVE (Negative); LEUK ESTERASE, URINE TRACE (negative); NITRITE, URINE NEGATIVE (negative); PH, URINE 5.5 (5-7)
[2024-07-24 16:45] LABS: CRYSTALS, URINE NONE SEEN (0-1+); EPITHELIAL CELLS, URINE SQUAMOUS 1+ /lpf (0-1+)
[2024-07-24 16:46] LABS: BACTERIA, URINE RARE /hpf (negative); COLLECTION TYPE, URINE CLEAN CATCH; REFLEX CULTURE, URINE No (No)
--- NOTE | 2024-07-24 18:56 | NUR ---
PT RESTING BACK IN BED AFTER BEING UP IN CHAIR FOR OVER AN HOUR WHILE EATING DINNER. PT DENIES NAUSEA AFTER DINNER AND APPETITE IS INCREASING. INTERMITANTLY WEARING CPAP WHILE SLEEPING IN BED. VS STABLE, AFEBRILE AT THIS TIME.
--- NOTE | 2024-07-24 19:20 | NUR ---
REPORT RECEIVED FROM DAY SHIFT RN. PATIENT IS RESTING IN BED WITH EYES CLOSED, RR 23. PATIENTS AT BEDSIDE AND DENIES ANY NEEDS. NAD NOTED. CALL LIGHT IN REACH.
--- NOTE | 2024-07-24 20:20 | NUR ---
PATIENTS VITALS TAKEN AND RECORDED. CUBA CARE COMPLETED. CUBA EMPTIED. INTAKE AND OUTPUT RECORDED. PATIENTS PM MEDS GIVEN PER ORDER. PATIENTS IV ABX INFUSING PER ORDER. PATIENT DENIES ANY SOB, PAIN, OR NAUSEA. PATIENTS IV IN RFA NO LONGER PATENT AND IV DC'D. PATIENT ASSESMENT COMPLETED. PATIENT EDUCATED BY THIS RN AND RT THE IMPORTANCE OF WEARING HIS CPAP. PATIENT VERBALIZED UNDERSTANDING AND AGREED TO WEAR HOME CPAP. PATIENTS DENIES ANY FURTHER NEEDS. CALL LIGHT IN REACH. PATEINTS AT BEDSIDE AND DENIES ANY FURTHER NEEDS. PATIENT PLACED HOME CPAP ON WHEN THIS RN LEFT ROOM.
--- NOTE | 2024-07-24 22:26 | NUR ---
PATIENT INCONT OF STOOL. PATIENT ASSISTED TO THE BR A 1PA W/FWW BY . SHOWER COMPLETED BY . PATIENT IS BACK IN BED RESTING. NEW TELE LEADS APPLIED. NEW IV DRESSING APPLIED. NEW STAT LOCK APPLIED. NEW CPOX STICKER PLACED. NEW GOWN IN PLACE. PATIENT DENIES ANY SOB, PAIN, OR NAUSEA. PATIENT PLACED HOME CPAP ON. PATIENT DENIES ANY FURTHER NEEDS. CALL LIGHT IN REACH. PATIENTS IV ABX INFUSING PER ORDER. PATIENTS AT BEDSIDE AND DENIES ANY NEEDS. CALL LIGHT IN REACH.
--- NOTE | 2024-07-24 23:56 | NUR ---
PATIENT IS RESTING IN BED WITH EYES CLOSED, RR 26. PATIENT HAS HOME CPAP IN USE. NAD NOTED. CALL LIGHT IN REACH. ASLEEP IN RECLINER.
[2024-07-25] VITALS (12 sets, daily range): BP systolic 93–131; BP diastolic 65–85
--- NOTE | 2024-07-25 01:28 | NUR ---
PATIENT IS RESTING IN BED WEARING HOME CPAP. ASSESMENT COMPLETED. PATIENT DENIES ANY SOB, PAIN OR NAUSEA. PATIENT DENIES ANY NEEDS. CALL LIGHT IN REACH. IN RECLINER AND DENIES ANY NEEDS.
--- NOTE | 2024-07-25 02:35 | NUR ---
PATIENT IS RESTING IN BED WEARING CPAP. PATIENTS SCHEDULED IV ABX INFUSING PER ORDER. PATIENT DENIES ANY PAIN OR SOB. PATIENT REPOSITIONED IN BED. NO FURTHER NEEDS NOTED. CALL LIGHT IN REACH.
--- NOTE | 2024-07-25 03:17 | NUR ---
PATIENT IS RESTING IN BED WITH EYES CLOSED, RR25. NAD NOTED. CALL LIGHT IN REACH.
--- NOTE | 2024-07-25 04:58 | NUR ---
PATIENT NOTED TO HAVE ELEVATED HR. THIS RN IN TO ASSES PATIENT. PATIENT WOKE AND TEMP OBTAINED. PATIENT NOTED TO HAVE ELEVATED TEMP, PRN MEDICATION GIVEN PER ORDER. PATIENT DENIES ANY PAIN, SOB OR NASUEA. PATIENT IS RESTING IN BED WEARING HOME CPAP. PATIENTS CUBA EMPTIED. INTAKE AND OUTPUT RECORDED. PATIENT AND PATIENTS DENY ANY NEEDS. CALL LIGHT IN REACH. ASSESMENT COMPLETED.
--- NOTE | 2024-07-25 06:00 | NUR ---
20G, 1.75" USIV PLACED IN RFA @ 0.5CM IN DEPTH. GOOD BLOOD RETURN FLUSHED WELL. PT TOLERATED WELL.
--- NOTE | 2024-07-25 06:16 | NUR ---
PATIENT UP TO THE BR A 1PA W/FWW WITH . UPON RETURNING FROM THE RESTROOM. PATIENT REQUESTED TO USE THE CRUTCHES. PATIENT LEFT KNEE BUCKLED AND PATIENT BECAME WEAK AND PANICKED. PATIENT GIVEN WALKER. THIS RN AND JIM RN ASSISTED PATIENT BACK TO BED. PATIENT SOB DURING ACTIVITY AND ELEVATED HR. PATIENT ABLE TO RECOVER ONCE BACK IN BED. PATIENT DENIES ANY SOB AT REST. PATIENT DENIES ANY CHEST PAIN. PATIENT DENIES ANY PAIN. PATIENTS IAB OBTAINED. NEW US IV PLACED BY SUMANTH HERRERA RN. PATIENTS TEMP WNL. PATIENT PLACED BACK ON HOME CPAP. CUBA EMPTIED. LAB IN ROOM. PATIENT DENIES ANY NEEDS. CALL LIGHT IN REACH.
[2024-07-25 06:28] LABS: BASOPHILS 0.3 % (0-2); EOSINOPHILS 0.7 % (0-6); HEMATOCRIT 24.9 % (35.0-50.0); HEMOGLOBIN 8.2 g/dL (12.0-18.0); LYMPHOCYTES 11.1 % (24-44); MCH 30.1 (27-36); MCHC 32.8 g/dl (30-36); MCV 91.5 fl (81-99); MONOCYTES 9.2 % (0-12); NEUTROPHILS 78.7 % (39-80); PLATELET COUNT 604 K/uL (140-440); RBC 2.72 M/ul (4.3-5.7); RDW 16.3 (10.5-15.0)
[2024-07-25 06:59] LABS: ANION GAP 18.4 (7-21); BUN/CREATININE RATIO 5.4 (6.0-28.6); CALCIUM 8.2 mg/dL (8.5-10.1); CREATININE, SERUM 2.22 mg/dL (0.70-1.30); POTASSIUM 4.4 mmol/L (3.5-5.1)
[2024-07-25] MEDS ORDERED: SODIUM CHLORIDE 0.9% 1,000 ML IV ONE ×2 (08:00→14:00)
--- NOTE | 2024-07-25 08:02 | NUR ---
REPORT RECIEVED FROM LONG WILSON. PT SITTING UP IN CHAIR EATING BREAKFAST AFTER USING RESTROOM. ASSISTING.
--- NOTE | 2024-07-25 09:12 | NUR ---
PT UP TO RESTROOM FOR LOOSE STOOL. AMB WITH FWW, TOLERATED WELL. WENT TO BED HE WANTED TO REST PRIOR TO BAIT TIER. ADMINISTERED MORNING MEDS, THEN ASSISTED WITH CPAP. SLIGHT WHEEZE HEARD. UNABLE TO ASSESS HRT TONES DUE TO POSITION AND SIZE. CELLULITIS WELL WITHIN BORDERS AND NO LONGER WARM TO TOUCH. SCOTAL EDEMA NOTED AND ELEVATED ON WASH CLOTHS. BOLUS AND AB INFUSING.
[2024-07-25 09:28] LABS: DIGOXIN 1.5 ng/dL (0.9-2.0)
--- NOTE | 2024-07-25 10:58 | NUR ---
PT BACK IN ROOM AND PUTTING CPAP ON FOR A NAP AFTER WORKING WITH PHYS THERAPY. AB CONTINUES TO INFUSE. IV IN LEFT ARM DC'D DUE TO LEAKING. IN ROOM. HELD DIG DUE TO DISCUSSION WITH DR MICHAELS.
--- NOTE | 2024-07-25 12:10 | NUR ---
INTRA-ABDOM PRESSURE ASSESSED 16. DOES NOT FEEL ANY MORE DISTENDED. ABD ACTUALLY A LITTLE SOFTER THAN THIS MORNING. ASSISTED TO CHAIR WITH FOR LUNCH. OPENED BLINDS IN ROOM TO HOPEFULLY KEEP HIM AWAKE.
--- NOTE | 2024-07-25 12:13 | NUR ---
PT INSTRUCTED TO DRINK AN ENSURE IF HE DOESN'T WANT TO EAT. URINE HAS LIGHTENED SLIGHTLY WITH THE BOLUS THIS MORNING BUT STILL DARK YELLOW.
--- NOTE | 2024-07-25 12:25 | CONS ---
[facility] [address] [facility] [place], [place] [address] Signed DATE OF CONSULTATION: 07/19/2024 ADDENDUM: I reviewed with the patient and his the anorectal problem that he has. Whether or not there has been progression of the acuity of his anorectal hemorrhoidal prolapse is uncertain. His has been doing some of the desi care including application of ointment to the area. The patient has had pain, but it is not worse today or in the past 24 hours, but certainly no better than when he came in he says. Whether or not this was causing his recent episode of fever and so forth is uncertain, but I think for more likely than the trivial fluid collection of his right calf and in particular considering the cath has essentially resolved his cellulitis compared to its presentation. On the basis of these findings, I have recommended hemorrhoidectomy. The risk of bleeding, infection, variable degrees of incontinence and so forth were reviewed with the patient and his . They understand and wished to proceed. Anesthesia for this particular procedure would be best in the prone leon-knife position, though given his significant obesity. This may be less possible. The general anesthetic or spinal or a combination thereof would be appropriate. We will plan for surgery tomorrow morning unless acuity should warrant otherwise. At present, he shows no sign of systemic toxicity and no regional cellulitis in the anorectal area. I reviewed all this with Dr. Arriaga who agrees. MD VINAYAK Feldman/MENDOZA /[id number] cc: Otoniel Arriaga MD Electronically Signed By: DIMITRI HAYWOOD MD 07/25/24 1225 PATIENT NAME: ALYSON TOMLINSON CONSULTATION DATE OF : 66 REPORT #: [id number] PHYSICIAN: DIMITRI HAYWOOD MD PCP: OTHER PCP REPORT IS CONFIDENTIAL AND NOT TO BE RELEASED WITHOUT AUTHORIZATION [facility] [address] [place] [address] [place], [place] [address] Signed Copies: ~ Electronically Signed By: DIMITRI HAYWOOD MD 07/25/24 1225 PATIENT NAME: ALYSON TOMLINSON CONSULTATION DATE OF : 66 REPORT #: [id number] PHYSICIAN: DIMITRI HAYWOOD MD PCP: OTHER PCP REPORT IS CONFIDENTIAL AND NOT TO BE RELEASED WITHOUT AUTHORIZATION
--- NOTE | 2024-07-25 13:20 | NUR ---
Spoke with pts so, Imani. She is aware is looking for transfer to a higher level of care. Pt is snoring and Imani places pts CPAP. Dr. Milian arrives and updates Imani and pt [facility] has accepted this pt for transfer today. Imani called pts son and was able to speak with son and answer questions. Pt is somewhat awake. All agree pt should transfer to higher level of care. Address and phone number given to Imani for [facility].
--- NOTE | 2024-07-25 13:45 | NUR ---
SPOKE WITH REGARDING CONTINUEING MARGINAL UO. ORDERED ANOTHER BOLUS. SPOKE WITH PT AND RE TRANSFER TO [place]. IS HOPING TO GO WITH IN [facility].
[2024-07-25] MEDS ORDERED: CEFEPIME HCL1 GM IV (13:52)
[2024-07-25] MEDS ORDERED: NYSTATIN100000 UN1 PO (13:53)
[2024-07-25] MEDS ORDERED: XARELTO10 MG PO (13:53)
[2024-07-25] MEDS ORDERED: DAPTOMYCIN500 MG IV (13:53)
[2024-07-25] MEDS ORDERED: LANOXIN250 MCG PO (13:54)
[2024-07-25] MEDS ORDERED: METOPROLOL TART50 MG PO (13:54)
[2024-07-25] MEDS ORDERED: DILTIAZEM 24HR240 M1 PO (13:54)
--- NOTE | 2024-07-25 15:00 | NUR ---
PT STARTING TO SPIKE A FEVER. GIVEN TYLENOL.
--- NOTE | 2024-07-25 16:27 | NUR ---
REPORT CALLED TO ABY AND GIVEN TO MEE ON FLOOR 4. ANSWERED ALL QUESTIONS AND SHE DENIED ANYTHING FURTHER.
[2024-07-26 14:57] LABS: HIV 1,2 COMBO ANTIGEN/ANTIBODY Negative (Negative)
[2024-07-27 08:00] LABS: QUANTIFERON MITOGEN MINUS NIL 4.85 IU/mL (()); QUANTIFERON NIL 0.07 IU/mL (()); QUANTIFERON TB GOLD PLUS Negative (Negative)
== END 2024-07-25 15:45 | disposition short-term general hospital (02) | DRG 853 ==
LOC: ED 17:45 → CCU 20:42
PROVIDERS: Emergency Medicine; Family Medicine; Student in an Organized Health Care Education/Training Program; Surgery; ADMIT Student in an Organized Health Care Education/Training Program; ATTEND Student in an Organized Health Care Education/Training Program
PROC: 0H9KXZZ Drainage of Right Lower Leg Skin, External Approach (ICD-10-PCS; 2024-07-19)
PROC: 3E03329 Introduction of Other Anti-infective into Peripheral Vein, Percutaneous Approach (ICD-10-PCS; 2024-07-20)
PROC: 06BY0ZC Excision of Hemorrhoidal Plexus, Open Approach (ICD-10-PCS; principal; 2024-07-20 08:00)
DX: A41.9 Sepsis, unspecified organism (principal); I26.99 Other pulmonary embolism without acute cor pulmonale; J18.9 Pneumonia, unspecified organism; J96.01 Acute respiratory failure with hypoxia; L03.115 Cellulitis of right lower limb; L02.415 Cutaneous abscess of right lower limb; N17.9 Acute kidney failure, unspecified; Z68.42 Body mass index [BMI] 45.0-49.9, adult; K64.5 Perianal venous thrombosis; I48.91 Unspecified atrial fibrillation; E11.9 Type 2 diabetes mellitus without complications; I10 Essential (primary) hypertension; E87.6 Hypokalemia; K64.8 Other hemorrhoids; E66.01 Morbid (severe) obesity due to excess calories; Z88.5 Allergy status to narcotic agent; Z88.8 Allergy status to other drugs, medicaments and biological substances; G47.30 Sleep apnea, unspecified; Z98.890 Other specified postprocedural states; Z79.899 Other long term (current) drug therapy; Z79.01 Long term (current) use of anticoagulants; Z79.82 Long term (current) use of aspirin; Z79.811 Long term (current) use of aromatase inhibitors; E83.42 Hypomagnesemia; R33.9 Retention of urine, unspecified
CPT/HCPCS: 00902; 36415; 51701; 51702; 51798; 71045; 71260; 73701; 74176; 74177; 76882; 80048; 80053; 80162; 81001; 81003; 82553; 82947; 83605; 83690; 83735; 83880; 84484; 85025; 85060; 85610; 85730; 87040; 87502; 93005; 93010; 93306; 93970; 94640; 94660; 97110; 97162; 97165; 97530; 97535; 99285-25; A9270; J0456; J0692; J0780; J0878; J1160; J1644; J1650; J1885; J1940; J2003; J2250; J2405; J2470; J3010; J3475; J3480; J3490; J7030; J7060; J7121; P9047; Q9967; U0002

== ENCOUNTER 2025-06-03 08:28 | Day surgery (SDC) | payer BC, OTHER ==
[~2025-06-03] VITALS: Ht 167.6 cm; Wt 114.0 kg
[~2025-06-03 08:28] MED LIST: ALLOPURINOL300 MG PO; CEFAZOLIN SODIUM 2 GM in SODIUM CHLORIDE 0.9% 100 ML IV SCH; CEFEPIME HCL1 GM IV; DAPTOMYCIN500 MG IV; DICLOFENAC SODI50 GM TP; DILTIAZEM 24HR180 M1 PO; DILTIAZEM 24HR240 M1 PO; DULOXETINE HCL 60 MG CAP PO SCH; FERROUS SULFAT325 M2 PO; FREESTYLE LANC1 EACH MISC; FREESTYLE LITE1 EAC1 MISC; GABAPENTIN 600 MG TAB PO SCH; HYDRALAZINE HCL25 MG PO; IBLOOD GLUCOSE TEST STRIP 1 EA TEST VI PRN; INTRA-ARTICULAR ANALGESIC INJECTION XX SCH; LACTATED RINGER'S 1,000 ML IV SCH; LANOXIN250 MCG PO; LIDOCAINE HCL 1% 5 ML SDV INJ ONE; LIDOCAINE HCL100 ML MT; LISINOPRIL40 MG PO; METOCLOPRAMIDE10 MG PO; METOPROLOL TART50 MG PO; NYSTATIN100000 UN1 PO; ONDANSETRON ODT4 MG PO; OXYCODONE HCL 5 MG TAB PO SCH; OZEMPIC0.25 MG/02 SQ; OZEMPIC1 MG/0.71 SUB-Q; PANTOPRAZOLE SO40 MG PO; PANTOPRAZOLE SODIUM 40 MG TABEC PO SCH; ROPIVACAINE IN 0.9% SOD CHL/PF 545 ML ELS.PMP.HR IRRIGATION SCH; TOPROL XL200 MG PO; TORSEMIDE10 MG PO; TRANEXAMIC ACID IN NACL,ISO-OS 1,000 MG/100 ML PIGGYBACK IV SCH; VAZALORE81 MG PO; VITAMIN C500 M5 PO; VITAMIN D325 MC2 PO; XARELTO10 MG PO; XARELTO20 MG PO
[2025-06-03 08:48] VITALS: BP 139/93
[2025-06-03] MEDS ORDERED: DEXAMETHASONE SOD PHOS 4 MG/ML VIAL ONE ×2 (09:30→10:22)
[2025-06-03] MEDS ORDERED: Ropivacaine HCl 0.5% 30 ML VIAL ONE (09:30)
[2025-06-03] MEDS ORDERED: LIDOCAINE HCL 2% 5 ML SDV ONE ×2 (09:30→10:22)
[2025-06-03] MEDS ORDERED: SODIUM CHLORIDE 0.9% 40 ML IV ONE (09:30)
[2025-06-03] MEDS ORDERED: KETOROLAC TROMETHAMINE 30 MG/ML VIAL IV PRN (11:15)
[2025-06-03] MEDS ORDERED: MIDAZOLAM HCL 2 MG/2 ML VIAL ONE (11:28)
[2025-06-03] MEDS ORDERED: PHENYLEPHRINE HCL IN 0.9% NACL 1 MG/10 ML SYR ONE ×2 (12:04→13:11)
[2025-06-03] MEDS ORDERED: TRANEXAMIC ACID 1,000 MG/10 ML AMP ONE (12:08)
[2025-06-03] MEDS ORDERED: CEFUROXIME250 MG PO (13:23)
[2025-06-03] MEDS ORDERED: TRANEXAMIC ACI650 MG PO (13:23)
[2025-06-03] MEDS ORDERED: SENNA LAX8.6 MG PO (13:24)
[2025-06-03] MEDS ORDERED: DULOXETINE HCL30 MG PO (13:24)
[2025-06-03] MEDS ORDERED: DICLOFENAC SODI75 MG PO (13:24)
[2025-06-03] MEDS ORDERED: HYDROMORPHONE HC4 MG PO (13:25)
--- NOTE | 2025-06-03 13:43 | NUR ---
06/03/25 1343 [address] 1334: PT ARRIVES TO PACU NON AROUSAL. REPROT RECEIVED FROM CAFETERIA ASSOCIATE AND PROCEDURAL NURSE. HECTOR 1337: PT OPENS HIS EYES. HE IS ABLE TO MOVE HIS LEGS AND FEEL THIS RN SQUEEZE HIS TOES.
[2025-06-03] MEDS ORDERED: fentaNYL citrate 50 MCG/ML SDV IV PRN (14:00)
[2025-06-03] MEDS ORDERED: HYDROmorphone HCL 1 MG/ML SYR IV PRN (14:00)
[2025-06-03] MEDS ORDERED: TRANEXAMIC ACID IN NACL,ISO-OS 1,000 MG/100 ML PIGGYBACK IV SCH (14:00)
[2025-06-03] MEDS ORDERED: NALOXONE HCL 0.4 MG SYR IV PRN (14:00)
[2025-06-03] MEDS ORDERED: IBLOOD GLUCOSE TEST STRIP 1 EA TEST VI PRN (14:00)
--- NOTE | 2025-06-03 14:25 | NUR ---
PT ARRIVES TO DS FROM PACU VIA STRETCHER. PT IS A&O AND ASKING QUESTIONS APPROPRIATELY. PT FAMILY AT BEDSIDE TO INTERPRET PER PT WISHES. PT REPORTS PAIN IS "ACHEY" AND 6/10 POSTERIOR RT KNEE, CRYO CUFF TO POSTERIOR ASPECT. DRESSING CLEAN AND DRY, NO SIGNS OF BLEEDING AT THIS TIME. PT REPORTS NO QUESTIONS OR NEEDS AT THIS TIME. PUDDING, WATER, AND CRACKERS PROVIDED FOR PRN PAIN MED TO BE GIVEN.
[2025-06-03 14:30] VITALS: BP 123/86
--- NOTE | 2025-06-03 14:48 | NUR ---
ORAL PRN PAIN MED GIVEN (SEE EMAR). TXA STARTED (SEE EMAR). SEVERAL FAMILY MEMBERS AT BEDSIDE. EXPLAINED TO PT VIA PT THAT PAIN MED MAY CAUSE GROGGINESS AND CAN TAKE ANYWHERE FROM 30 MIN TO 1 HOUR TO TAKE EFFECT. PT AND PT STATE VERBAL UNDERSTANDING AT THIS TIME.
[2025-06-03] MEDS ORDERED: GABAPENTIN 300 MG CAP PO SCH (15:00)
--- NOTE | 2025-06-03 15:06 | OR ---
[facility] [address] [place], [place] [address] Signed DATE OF OPERATION: 06/03/2025 SURGEON: Elvis Pond MD PREOPERATIVE DIAGNOSIS: Severe degenerative joint disease, left knee. POSTOPERATIVE DIAGNOSIS: Severe degenerative joint disease, left knee. PROCEDURE PERFORMED: Left total knee arthroplasty with Shady. STAMP CLASSIFIER: Qian Chu PA-C. Qian was present and critical for all portions of procedure. ANESTHESIA: Spinal. BLOOD LOSS: 300 mL. IMPLANTS: Maury Triathlon size 6, 13 mm polyethylene, and a 38 mm patella. BRIEF HISTORY: Alyson is a 55-year-old gentleman with progressive worsening of osteoarthritis with significant medial and posteromedial erosion into the tibia. The risks and benefits of operative treatment were discussed with him. He elected to proceed. DESCRIPTION OF PROCEDURE: Once consent was obtained, he was taken to the operating room. After adequate anesthesia, he was placed on the OR table on hip bump. The left leg was then prepped and draped in a standard sterile fashion. The knee was approached through a standard anterior midline incision, carried through skin and subcutaneous tissue. A mid vastus arthrotomy was performed and the infrapatellar fat pad was excised. The MCL was elevated as a sleeve around the posteromedial corner. The patella was then cut to allow entry into the knee with less pressure on the soft tissue. The navigation computer arrays were then placed in the distal femur and the proximal tibia. The leg was Electronically Signed By: ELVIS POND MD 06/03/25 1506 PATIENT NAME: ALYSON CRAFT OPERATIVE REPORT DATE OF : 66 REPORT #: [id number] PHYSICIAN: ELVIS POND MD PCP: BIANCA LERNER MD REPORT IS CONFIDENTIAL AND NOT TO BE RELEASED WITHOUT AUTHORIZATION [facility] [address] [place], [place] [address] Signed registered with the computer. Fine anatomic points of the knee were then registered and the four ligamentous poses were undertaken with slight adjustments to the plan. Once this was completed, the robot was brought in. The four straight cuts and two angle cuts were made with care taken to protect the patellar tendon and MCL. The bony remnants removed as were any remaining osteophytes. The posterior osteophytes removed off the femur and posterior release was performed. The trials were then positioned and the knee was taken from 0-130 degrees initially with a 12 and a 13 mm polyethylene. The patella was re-cut to the proper size and drilled for a 38 mm patella. The distal femur was drilled and the proximal tibia was finished using the keel punch and the drill holes. The trials were then removed. The bone surfaces were cleaned. The implants were obtained. The tibia was impacted into position first followed by the polyethylene. The femur was snapped into position and the knee was extended loaded. The patella was then clamped into position. The knee was again taken through range of motion, had good stability and the patella tracked very nicely. The wound was copiously irrigated with Surgiphor followed by normal saline. The periarticular soft tissues were injected with 60 mg of Toradol, Kenalog, ropivacaine. The On-Q pain pump was percutaneously placed into the adductor canal. The arthrotomy was then closed using combination of #2 FiberWire, #2 Stratafix. The subcutaneous tissue with 0 Stratafix and skin with 3-0. The wound was sealed with LiquiBand and Steri-Strips, dressed with an Acticoat-7 dressing, ABD, and Star wrap. He tolerated the procedure well. All sponge, needle, and instrument counts were correct. Elvis Pond MD BA/MODL /[id number] Copies: ~ Electronically Signed By: ELVIS POND MD 06/03/25 1506 PATIENT NAME: BUSHRA MANZANARESALYSON OPERATIVE REPORT DATE OF : 66 REPORT #: [id number] PHYSICIAN: ELVIS POND MD PCP: BIANCA LERNER MD REPORT IS CONFIDENTIAL AND NOT TO BE RELEASED WITHOUT AUTHORIZATION
[2025-06-03 15:23] VITALS: BP 132/90
--- NOTE | 2025-06-03 15:24 | NUR ---
IN PT ROOM FOR ASSESSMENT AND VS. PT REPORTS PAIN HAS REDUCED TO 5/10 AT THIS TIME. WARM BLANKETS PROVIDED. NO ACUTE CHANGES FROM PREVIOUS ASSESSMENT. CALL LIGHT WITHIN REACH, FAMILY AT BEDSIDE.
--- NOTE | 2025-06-03 15:58 | NUR ---
AMMON WITH PHYSICAL THERAPY IN ROOM TO WORK WITH PT AT THIS TIME. PT FWW IN ROOM AND FAMILY AT BEDSIDE.
--- NOTE | 2025-06-03 16:25 | NUR ---
PT BACK FROM PHYSICAL THERAPY AND PASSED PER AMMON ALVES. PT GETTING DRESSED NOW WITH AND AMMON Chaves/PHYSICAL THERAPY'S ASSISTANCE. CALL LIGHT WITHIN REACH.
[2025-06-03 16:44] VITALS: BP 115/81
--- NOTE | 2025-06-03 16:45 | NUR ---
IN PT ROOM FOR DC EDUCATION. PT AND PT STATE VERBAL UNDERSTANDING OF DC EDUCATION AND NO FURTHER QUESTIONS AT THIS TIME. ALL BELONGINGS IN PT POSSESSION. ICE PACK, INCENTIVE SPIROMETER, ICE WATER, AND FULL CRYO CUFF MACHINE PROVIDED. PT OFF OF UNIT VIA WC TO PASSENGER SIDE OF VEHICLE W/STAND AND PIVOT METHOD. PT AND PT REPORT NO FURTHER NEEDS AT THIS TIME.
[2025-06-03] MEDS ORDERED: CEFAZOLIN SODIUM 3 GM in SODIUM CHLORIDE 0.9% 100 ML IV SCH (18:00)
[2025-06-03] MEDS ORDERED: ASPIRIN 325 MG TAB PO SCH (21:00)
[2025-06-03] MEDS ORDERED: TRANEXAMIC ACID 650 MG TABLET PO SCH (21:00)
[2025-06-03] MEDS ORDERED: SENNOSIDES 1 TAB PO SCH (21:00)
[2025-06-04] MEDS ORDERED: DICLOFENAC SOD 75 MG TABEC PO SCH (08:00)
[2025-06-04] MEDS ORDERED: DULOXETINE HCL 30 MG CAP PO SCH (09:00)
== END 2025-06-03 17:25 | disposition home or self-care (01) ==
LOC: DS 08:28
PROVIDERS: ATTEND Specialist
PROC: 3E0T3BZ Introduction of Anesthetic Agent into Peripheral Nerves and Plexi, Percutaneous Approach (ICD-10-PCS; 2025-06-03)
PROC: 0SRD0JZ Replacement of Left Knee Joint with Synthetic Substitute, Open Approach (ICD-10-PCS; principal; 2025-06-03 11:30)
DX: M17.12 Unilateral primary osteoarthritis, left knee (principal); I10 Essential (primary) hypertension; E11.9 Type 2 diabetes mellitus without complications; K21.9 Gastro-esophageal reflux disease without esophagitis; E78.00 Pure hypercholesterolemia, unspecified; G47.33 Obstructive sleep apnea (adult) (pediatric); Z87.891 Personal history of nicotine dependence; Z79.01 Long term (current) use of anticoagulants; Z79.85 Long-term (current) use of injectable non-insulin antidiabetic drugs; Z79.899 Other long term (current) drug therapy; Z88.5 Allergy status to narcotic agent; Z88.8 Allergy status to other drugs, medicaments and biological substances
CPT/HCPCS: 0055T; 27447; 64447; 01402; 64454; 73560; 97110; 97161; 97530; A9270; C1776; J0165; J0688; J1100; J1885; J2003; J2250; J2704; J2795; J3010; J7121; J7999